=== PATIENT | male | born 1955 | race Caucasian/White ===

== ENCOUNTER 2020-01-26 14:10 | Outpatient (REF) | payer MEDICARE, OTHER, SELFPAY ==
[2020-01-26 16:33] LABS: Hematocrit 43.2 % (42-52); Hemoglobin 14.7 g/dl (14.0-18.0); Mean Corpuscular Hemoglobin 33.3 pg (27.0-33.0); Mean Corpuscular Volume 97.7 fL (80-98); Mean Platelet Volume 10.4 fL (9.4-12.4); Platelet Count 177 X10*3/uL (160-400); Red Blood Count 4.42 X10*6/uL (4.60-5.80); Red Cell Distribution Width 12.1 % (11.0-16.0); White Blood Count 5.9 X10*3/uL (4.8-10.8)
[2020-01-26 16:56] LABS: Anion Gap 12 (12-20); Blood Urea Nitrogen 17 mg/dL (9-16); Calcium 9.1 mg/dL (8.4-10.2); Carbon Dioxide 28 mmol/L (22-29); Chloride 104 mmol/L (96-108); Estimated Glomerular Filt Rate > 60; Glucose Random 102 mg/dL (60-115); Potassium 4.5 mmol/l (3.3-5.1); Sodium 139 mmol/L (135-145)
== END 2020-01-26 14:11 | disposition home or self-care (01) ==
LOC: HO.LAB 14:10
PROVIDERS: Referring Provider Internal Medicine; Visit Provider Internal Medicine Cardiovascular Disease
DX: I35.0 Nonrheumatic aortic (valve) stenosis (principal); R06.00 Dyspnea, unspecified; I10 Essential (primary) hypertension; Z87.891 Personal history of nicotine dependence
CPT/HCPCS: 36415; 80048; 85027; 85610; 99214; 99215

== ENCOUNTER → 2020-05-30 12:05 | Outpatient (BNVA) | payer MEDICARE, OTHER, SELFPAY | PROVIDERS: PCP Nurse Practitioner Family; Visit Provider Internal Medicine Cardiovascular Disease | DX: R00.2 Palpitations (principal); I10 Essential (primary) hypertension; Z95.2 Presence of prosthetic heart valve | CPT/HCPCS: 99212 ==

== ENCOUNTER → 2020-06-13 09:27 | Outpatient (REF) | payer MEDICARE, SELFPAY ==
--- NOTE | 2020-06-13 11:02 | ECG_ITS ---
Hook-up date: 2020-06-13 10:34:00 Duration: 25:13:00 Test Indications: PALPITATIONS Medications: 33741 QRS complexes 58 Ventricular ectopics which represent <1 % of total QRS comp. 319 Supraventricular ectopics which represent <1 % of total QRS comp. * Paced QRS complexs which represent % of total QRS comp. VENTRICULAR ECTOPY 56 Isolated 0 Bigeminal Cycles 1 Couplets 0 Runs 0 Beats in Runs * Beats LONGEST at * BPM at :: -- * Beats FASTEST at * BPM at :: -- SUPRAVENTRICULAR ECTOPY 315 Isolated 2 Couplets 0 Runs 0 Beats in Runs * Beats LONGEST at * BPM at :: -- * Beats FASTEST at * BPM at :: -- HEART RATES 38 MIN at 10:45:18 2020-06-13 52 AVG 76 MAX at 19:00:14 2020-06-13 LONGEST RR 1.9840 secs at 06:09:22 2020-06-14 S-T LEVELS Channel 1 - 128 mm at 10:34:00 2020-06-13 - 128 mm at 10:34:00 2020-06-13 Channel 2 - 128 mm at 10:34:00 2020-06-13 - 128 mm at 10:34:00 2020-06-13 Channel 3 - 128 mm at 02:95:31 -- - 128 mm at 02:95:31 Basic rhythm Normal sinus rhythm No long pause or profound bradycardia Frequent Sinus bradycardia , 93% of time HR < 60 bpm Baseline BBB Occasional Premature atrial complexes No diary submitted Referred By: Maynor Kurtz Overread By: ALBINO MARQUES MD
== END ==
LOC: HO.CARD 09:27
PROVIDERS: PCP Nurse Practitioner Family; Visit Provider Internal Medicine Cardiovascular Disease
DX: R00.2 Palpitations (principal)
CPT/HCPCS: 93226

== ENCOUNTER → 2020-07-04 09:55 | Outpatient (BNVA) | payer MEDICARE, SELFPAY | PROVIDERS: PCP Nurse Practitioner Family; Visit Provider Internal Medicine Cardiovascular Disease | DX: R00.2 Palpitations (principal); I10 Essential (primary) hypertension; Z95.2 Presence of prosthetic heart valve | CPT/HCPCS: 99212 ==

== ENCOUNTER → 2020-08-20 14:16 | Outpatient (BNVA) | payer MEDICARE, SELFPAY | PROVIDERS: PCP Nurse Practitioner Family; Visit Provider Internal Medicine Cardiovascular Disease | DX: I10 Essential (primary) hypertension (principal); Z95.1 Presence of aortocoronary bypass graft; Z95.2 Presence of prosthetic heart valve; Z79.899 Other long term (current) drug therapy; Z87.891 Personal history of nicotine dependence | CPT/HCPCS: 99212 ==

== ENCOUNTER → 2021-03-11 09:57 | Outpatient (BNVA) | payer MEDICARE, SELFPAY | PROVIDERS: PCP Nurse Practitioner Family; Referring Provider Nurse Practitioner Family; Visit Provider Internal Medicine Cardiovascular Disease | DX: Z95.1 Presence of aortocoronary bypass graft (principal); Z95.2 Presence of prosthetic heart valve | CPT/HCPCS: 93005; 99212 ==

== ENCOUNTER → 2021-07-12 13:15 | Outpatient (BNVA) | payer MEDICARE, SELFPAY | PROVIDERS: PCP Nurse Practitioner Family; Referring Provider Nurse Practitioner Family; Visit Provider Nurse Practitioner Family | DX: Z01.810 Encounter for preprocedural cardiovascular examination (principal); I35.0 Nonrheumatic aortic (valve) stenosis; I25.10 Atherosclerotic heart disease of native coronary artery without angina pectoris; Z95.1 Presence of aortocoronary bypass graft; Z95.2 Presence of prosthetic heart valve | CPT/HCPCS: 93005; 99212; Q3014 ==

== ENCOUNTER 2021-07-22 15:39 | Outpatient (REF) | payer MEDICARE, SELFPAY ==
[2021-07-22 19:10] LABS: Influenza A PCR NEGATIVE (Negative); Influenza B PCR NEGATIVE (Negative); Resp Syncy Virus RNA Qual PCR NEGATIVE (Negative); SARS COV2 PCR INHOUSE NEGATIVE (Negative)
== END 2021-07-22 15:40 | disposition home or self-care (01) ==
LOC: HO.LAB 15:39
PROVIDERS: Visit Provider Nurse Practitioner Family
DX: Z01.818 Encounter for other preprocedural examination (principal); Z20.822 Contact with and (suspected) exposure to COVID-19
CPT/HCPCS: 0241U

== ENCOUNTER → 2021-08-27 09:28 | Outpatient (REF) | payer MEDICARE, SELFPAY ==
--- NOTE | 2021-08-27 09:31 | CA_ITS ---
Transthoracic Echocardiogram Patient (Last, First, Middle): Satish Metcalf, Gender: Male Date of : 1955 Age: 66 Procedure Date: 08/27/2021 Procedure Type: Transthoracic Echocardiogram Location: OP Height: 180.34 cm Weight: 100.7 kg BSA: 2.20 m2 Heart Rate: bpm BP: 135 / 72 mmHg Industrial Electrical Engineer: KRISTA Referring MD: Michelle Ortega WOOD BUCKERConstantin Symptoms: Z95.2 - Presence of prosthetic heart valve Study Quality: Fair ECG Rhythm: Sinus Conclusions: - The left ventricular systolic function is normal. The calculated ejection fraction is 63% by biplane method. - The basal inferior and basal inferoseptal segments are hypokinetic. - A bioprosthetic aortic valve is present. The prosthetic aortic valve appears to be functioning normally. Findings Left Ventricle Normal left ventricular cavity size. There is mildly increased left ventricular wall thickness. The left ventricular systolic function is normal. The calculated ejection fraction is 63% by biplane method. There is evidence of regional wall motion abnormalities. Evidence suggests grade I (mild) diastolic dysfunction. Wall Motion Rest Echo Findings The basal inferior and basal inferoseptal segments are hypokinetic. Right Ventricle Normal right ventricular cavity size. There is normal right ventricular systolic function. Atria The left atrium is mildly dilated. The right atrium is normal in size. Aortic Valve A bioprosthetic aortic valve is present. The prosthetic aortic valve appears to be functioning normally. The mean gradient is 15 mmHg. The aortic valve area is 2.03 cm2. There is no aortic valve regurgitation. Mitral Valve There is mild mitral annular calcification. There is no mitral valve regurgitation. There is no mitral valve stenosis. Pulmonic Valve The pulmonic valve is likely normal. Tricuspid Valve Normal tricuspid valve structure. There is trace tricuspid valve regurgitation. The pulmonary artery systolic pressure is normal. Great Vessels The asc aorta is normal in size. Venous The inferior vena cava is normal in size and collapses greater than 50% with inspiration. Pericardium/Pleural There is no evidence of pericardial effusion. Prior Study Comparison Changes noted compared to prior study dated: 07/25/2019. s/p AVR. See comments on wall motion. Measurements 2D Linear Measurements IVSd: 1.27 0.6-0.9/0.6-1.0 cm LVIDd: 4.40 3.9-5.3/4.2-5.9 cm LVIDd Index: 2.00 2.4-3.2/2.2-3.1 cm/m2 LVIDs: 2.31 2.0-3.6 cm LVPWd: 1.19 0.7-1.1 cm LA Diam: 4.20 2.7-3.8/3.0-4.0 cm LAIDs Index: 1.91 1.5-2.3 cm/m2 LV Mass: 247.15 67-162/88-224 g LV Mass Index: 112.34 43-95/49-115 g/m2 LVOT Diam: 2.00 3.0+(-)1.3 cm 2D Systolic Function EF 4C: 64.60 >55% EF 2C: 64.30 >55% EF BiP: 63.10 >55% Mitral Valve MV Pk E: 0.72 MV PK A: 0.91 MV Decel Time: 254.00 E/A: 0.80 E'Lateral: 8.16 E'Medial: 5.55 E/E' Med: 13.00 E/E' Lat: 8.80 PHT: 74.00 MVA PHT: 2.97 Decel Pasco: 2.84 Aortic Valve AoV Pk Reinier: 2.45 AoV Mn Reinier: 1.87 AoV VTI: 0.62 AoV Pk Grad: 24.00 Aov Mn Grad: 15.00 MAY Cont.VTI: 2.03 LVOT LVOT Pk Reinier: 1.67 LVOT Mn Reinier: 1.15 LVOT VTI: 0.40 LVOT Pk Grad: 11.00 LVOT Mn Grad: 6.00 LVOT Diam: 2.00 LVOT Area: 3.14 Diastolic Function MV Pk E: 0.72 MV Pk A: 0.91 E/A: 0.80 E'Medial: 5.55 E/E' Med: 13.00 E' Laterial: 8.16 E/E' Lat: 8.80 Right Ventricle TAPSE (mm): 20.70 TVS' Reinier: 8.27 Tricuspid Valve TR Pk Reinier: 1.78 TR Pk Grad: 13.00 RA Press: 3.00 RVSP: 16.00 Great Vessels Aorta Sinus of Valsalva: 3.43 2.0-3.[address] [place]: 2.61 1.7-3.4 cm Ao Asc: 3.30 2.1-3.4 cm Updated in Other Vendor System with Status of Final Ferny Daniels MD electronically signed on 08/29/2021 5:13:37 PM with status of Final
== END ==
LOC: HO.CARD 09:28
PROVIDERS: Visit Provider Nurse Practitioner Family
DX: Z95.1 Presence of aortocoronary bypass graft (principal); Z95.2 Presence of prosthetic heart valve
CPT/HCPCS: 93306

== ENCOUNTER 2021-11-18 06:05 | Outpatient (REF) | payer MEDICARE, SELFPAY ==
[2021-11-18 08:30] LABS: INTERNATIONAL NORM RATIO 0.9 (0.9-1.1); Prothrombin Time 10.4 SEC (10.0-13.1)
[2021-11-18 08:33] LABS: Partial Thromboplastin Time 28.4 SEC (26.0-36.4)
[2021-11-18 11:11] LABS: MANUAL DIFF FLAG NO
[2021-11-18 11:35] LABS: Appearance Urine CLEAR; Glucose Urine UA NEG (NEG); Leukocyte Esterase Urine NEG (NEG); Nitrite Urine NEG (NEG); Specific Gravity - Urine <= 1.005 (1.005-1.025); Urine Blood NEG (NEG); Urine Ketones NEG (NEG); Urine Protein NEG (NEG-TRACE)
[2021-11-18 11:37] LABS: Color Urine COLORLESS
[2021-11-18 11:52] LABS: Basophils Percent Auto 0.5 % (0-2); Eosinophils Absolute Auto 0.5 X10*3/uL (0.0-0.4); Eosinophils Percent Auto 7.1 % (0-4); Hematocrit 43.8 % (42.0-52.0); Imm Gran Abs Auto 0.01 X10*3/uL (0.00-0.03); Imm Gran Pct Auto 0.2 % (0.0-0.4); Lymphocytes Absolute Auto 2.3 X10*3/uL (1.2-4.9); Lymphocytes Percent Auto 35.7 % (20-40); Mean Corpuscular HGB Conc 34.2 g/dl (31.0-36.0); Mean Corpuscular Volume 99.3 fL (80.0-98.0); Mean Platelet Volume 10.6 fL (9.4-12.4); Monocytes Absolute Auto 0.4 X10*3/uL (0.1-1.2); Monocytes Percent Auto 5.8 % (2-11); Neutrophils Absolute Auto 3.2 x10*3/uL (2.0-8.3); Neutrophils Percent Auto 50.7 % (45-73); Platelet Count 147 X10*3/uL (160-400); Red Blood Count 4.41 X10*6/uL (4.60-5.80); Red Cell Distribution Width 12.7 % (11.0-16.0); White Blood Count 6.3 X10*3/uL (4.8-10.8)
[2021-11-18 12:02] LABS: TSH reflex Free T4 2.45 uIU/mL (0.32-4.0)
[2021-11-18 12:04] LABS: Alanine Aminotransferase 41 U/L (0-40); Albumin Level 4.3 g/dL (3.5-5.0); Alkaline Phosphatase 121 U/L (39-117); Anion Gap 13 (12-20); Aspartate Amino Transferase 33 U/L (5-37); Bilirubin Total 0.8 mg/dL (0.0-1.0); Blood Urea Nitrogen 19 mg/dL (9-16); Calcium 8.9 mg/dL (8.4-10.2); Carbon Dioxide 28 mmol/L (22-29); Chloride 104 mmol/L (96-108); Cholesterol 117 mg/dL; Estimated Glomerular Filt Rate > 60; Glucose Fasting 104 mg/dL (60-99); HDL Cholesterol 51 mg/dL; LDL Cholesterol Calculated 52 mg/dl; Potassium 4.7 mmol/L (3.3-5.1); Sodium 140 mmol/L (135-145); Triglycerides 72 mg/dL
== END 2021-11-18 06:06 | disposition home or self-care (01) ==
LOC: HO.HMGCLDS 06:05
PROVIDERS: PCP Nurse Practitioner Family; Visit Provider Nurse Practitioner Family
DX: Z01.818 Encounter for other preprocedural examination (principal)
CPT/HCPCS: 36415; 80053; 80061; 81003; 84443; 85025; 85610; 85730

== ENCOUNTER → 2022-01-06 13:57 | Outpatient (BNVA) | payer MEDICARE, SELFPAY | PROVIDERS: PCP Nurse Practitioner Family; Referring Provider Nurse Practitioner Family; Visit Provider Physician Assistant | DX: Z86.010 Personal history of colon polyps (principal); I10 Essential (primary) hypertension; Z95.1 Presence of aortocoronary bypass graft | CPT/HCPCS: 99202 ==

== ENCOUNTER → 2022-02-06 10:28 | Outpatient (BNVA) | payer MEDICARE, SELFPAY | PROVIDERS: PCP Nurse Practitioner Family; Referring Provider Nurse Practitioner Family; Visit Provider Internal Medicine Cardiovascular Disease | DX: Z01.810 Encounter for preprocedural cardiovascular examination (principal); I10 Essential (primary) hypertension; Z95.1 Presence of aortocoronary bypass graft | CPT/HCPCS: 93005; 99212 ==

== ENCOUNTER 2022-03-14 07:56 | Outpatient (REF) | payer MEDICARE, SELFPAY ==
[2022-03-14 12:28] LABS: Alanine Aminotransferase 27 U/L (0-40); Alkaline Phosphatase 142 U/L (39-117); Aspartate Amino Transferase 23 U/L (5-37); Bilirubin Direct 0.3 mg/dL (0.0-0.5); Bilirubin Total 0.6 mg/dL (0.0-1.0); Prostate Specific Antigen Scr 0.39 ng/mL (<0.05-4.0); Total Protein 6.7 g/dL (6.5-8.0)
[2022-03-14 12:47] LABS: HBS Num1 0.52 mIU/mL (0-7.99); HBsAGNum1 0.42 S/CO (0.00-0.99); Hepatitis A Antibody IgM 0.15 Index (0-0.79); Hepatitis B Core Antibody Nonreactive (Nonreactive); Hepatitis B Surface Antigen Negative (Negative); ~HepC Num1 0.11 S/CO (0.00-0.79); ~Hepatitis A Antibody IgM Nonreactive (Nonreactive); ~Hepatitis B Surface Antibody NONREACTIVE (Nonreactive); ~Hepatitis C Antibody Nonreactive (Nonreactive)
[2022-03-14 13:07] LABS: Gamma Glutamyl Transpeptidase 30 U/L (11-51)
== END 2022-03-14 07:57 | disposition home or self-care (01) ==
LOC: HO.HMGCLDS 07:56
PROVIDERS: PCP Nurse Practitioner Family; Visit Provider Nurse Practitioner Family
DX: Z12.5 Encounter for screening for malignant neoplasm of prostate (principal); R74.8 Abnormal levels of other serum enzymes
CPT/HCPCS: 36415; 80076; 82977; 84153; 86704; 86706; 86709; 86803; 87340

== ENCOUNTER 2022-04-18 09:43 | Outpatient (REF) | payer MEDICARE, SELFPAY ==
[2022-04-18 11:59] LABS: Gamma Glutamyl Transpeptidase 35 U/L (11-51)
[2022-04-23 08:39] LABS: Alk.Phos Iso. Macrohepatic 0 % (<=0); Alk.Phos Isoenzymes Bone 28 % (28-66); Alk.Phos Isoenzymes Intest 5 % (1-24); Alk.Phos Isoenzymes Liver 67 % (25-69); Alk.Phos Isoenzymes Placental 0 % (<=0); Alk.Phos Isoenzymes Total 113 U/L (35-144)
== END 2022-04-18 09:44 | disposition home or self-care (01) ==
LOC: HO.HMGCLDS 09:43
PROVIDERS: PCP Nurse Practitioner Family; Visit Provider Nurse Practitioner Family
DX: R74.8 Abnormal levels of other serum enzymes (principal)
CPT/HCPCS: 36415; 82977; 84080

== ENCOUNTER 2022-05-05 13:41 | Outpatient (REF) | payer MEDICARE, SELFPAY ==
[2022-05-05 16:38] LABS: MANUAL DIFF FLAG NO
[2022-05-05 16:40] LABS: Basophils Percent Auto 0.2 % (0-2); Eosinophils Absolute Auto 0.4 X10*3/uL (0.0-0.4); Eosinophils Percent Auto 7.1 % (0-4); Hematocrit 43.4 % (42.0-52.0); Hemoglobin 14.8 g/dl (14.0-18.0); Imm Gran Abs Auto 0.01 X10*3/uL (0.00-0.03); Imm Gran Pct Auto 0.2 % (0.0-0.4); Lymphocytes Percent Auto 32.5 % (20-40); Mean Corpuscular HGB Conc 34.1 g/dl (31.0-36.0); Mean Corpuscular Hemoglobin 32.9 pg (27.0-33.0); Mean Corpuscular Volume 96.4 fL (80.0-98.0); Mean Platelet Volume 10.8 fL (9.4-12.4); Monocytes Absolute Auto 0.4 X10*3/uL (0.1-1.2); Monocytes Percent Auto 5.8 % (2-11); Neutrophils Absolute Auto 3.3 x10*3/uL (2.0-8.3); Neutrophils Percent Auto 54.2 % (45-73); Platelet Count 170 X10*3/uL (160-400); White Blood Count 6.1 X10*3/uL (4.8-10.8)
[2022-05-05 18:20] LABS: Alanine Aminotransferase 23 U/L (0-40); Albumin Level 4.1 g/dL (3.5-5.0); Alkaline Phosphatase 128 U/L (39-117); Anion Gap 12 (12-20); Aspartate Amino Transferase 20 U/L (5-37); Bilirubin Total 0.7 mg/dL (0.0-1.0); Blood Urea Nitrogen 15 mg/dL (9-16); Carbon Dioxide 27 mmol/L (22-29); Chloride 105 mmol/L (96-108); Estimated Glomerular Filt Rate > 60; Glucose Random 113 mg/dL (60-115); Potassium 4.4 mmol/L (3.3-5.1); Sodium 140 mmol/L (135-145); Total Protein 6.7 g/dL (6.5-8.0)
[2022-05-05 18:36] LABS: TSH reflex Free T4 2.71 uIU/mL (0.32-4.0)
== END 2022-05-05 13:42 | disposition home or self-care (01) ==
LOC: HO.HMGCLDS 13:41
PROVIDERS: PCP Nurse Practitioner Family; Visit Provider Nurse Practitioner Family
DX: I10 Essential (primary) hypertension (principal)
CPT/HCPCS: 36415; 80053; 84443; 85025

== ENCOUNTER 2022-07-01 06:59 | Day surgery (SDC) | payer MEDICARE, SELFPAY ==
[2022-06-25 10:31] VITALS: BMI 31.4
[2022-06-25 10:50] VITALS: BMI 31.1
--- NOTE | 2022-06-30 11:05 | P.CONAN_ITS ---
Documented by User: Carlee Delacruz NP 06/30/22 11:09 HPI - Anesthesia Eval Consult details Narrative: 67yo M for Colonoscopy Cardiac cleared. OK to hold plavix. Do not interrupt aspirin. s/p CABG x 3 and AVR 04/2020 [facility] Active Problems Active Problems: All Active Problems (Updated 05/05/22 @ 13:41 by Jack Mckenna [facility]) Palpitations (Acute) S/P AVR (Acute) S/P CABG x 3 (Acute) Preop cardiovascular exam (Acute) Atherosclerotic coronary vascular disease (Acute) Pre-op evaluation (Acute) Screening PSA (prostate specific antigen) (Acute) Elevated liver enzymes (Acute) Screening for colon cancer (Acute) Hypertension (Acute) History of colonic polyps (Acute) Preop cardiovascular exam (Acute) Elevated alkaline phosphatase level (Acute) Hypertension (Acute) DEAN (dyspnea on exertion) (Acute) Severe aortic stenosis (Acute) Past Medical History Medical History DEAN (dyspnea on exertion) Hypertension Severe aortic stenosis Family History Family History Father CVD (cardiovascular disease) History of heart attack Mother No problems noted. Surgical History Surgical History History of eye surgery History of left cataract surgery Hx of colonoscopy Hx of detached retina repair S/P CABG x 3 Social History Social History (Updated 06/25/22 @ 10:52 by Lizbet Collado RN) Housing: House Are you a primary home care specialist to a significant other at home: No Do you presently have visiting nurse or other home services: No Alcohol intake: current Alcohol intake frequency: 3 or more drinks per day Alcohol type: beer Patient Tobacco Use Status: Former Tobacco user Quit Date: 1999 Tobacco use type: Cigarette Years Smoked: 20 +/- e-Cigarette/Vaping Use: Never Used Second Hand Smoke Exposure: Yes service: No Current occupational status: retired Cognitive needs: No Hearing needs: No Vision needs: No Meds Allergies Allergy/AdvReac Type Severity Reaction Status Date / Time No Known Allergies Allergy Verified 07/01/22 07:11 Exam Exam Date and Time: June 30, 2022 1105 Height,Weight and Vital Signs: Height 5 ft 11 in Weight 101.151 kg Pertinent Lab Results Pertinent Lab Results: Laboratory Tests 05/05/22 05/05/22 13:51 13:51 WBC 6.1 Hgb 14.8 Hct 43.4 Plt Count 170 Sodium 140 Potassium 4.4 Chloride 105 Carbon Dioxide 27 BUN 15 Creatinine 0.85 Narrative Narrative: EKG 01/2022 Sinus bradycardia 49 beats per minute, right bundle-branch block, QTC 417 milliseconds ECHO 08/2021 Conclusions: - The left ventricular systolic function is normal.? The ? calculated ejection fraction is 63% by biplane method. ? - The basal inferior and basal inferoseptal segments are ? hypokinetic. ? - A bioprosthetic aortic valve is present.? The prosthetic aortic valve appears to be functioning normally.? ?? Assessment and Plan Assessment Anesthesia Assessment: Chart Reviewed Documented by User: La Frederick MD 07/01/22 10:28 [facility] Past Medical History Medical History DEAN (dyspnea on exertion) Hypertension Severe aortic stenosis Family History Family History Father CVD (cardiovascular disease) History of heart attack Mother No problems noted. Family history of problems with anesthesia: No Surgical History Surgical History History of eye surgery History of left cataract surgery Hx of colonoscopy Hx of detached retina repair S/P CABG x 3 History of Problems with Anesthesia: No Social History Social History (Updated 06/25/22 @ 10:52 by Lizbet Collado RN) Housing: House Are you a primary home care specialist to a significant other at home: No Do you presently have visiting nurse or other home services: No Alcohol intake: current Alcohol intake frequency: 3 or more drinks per day Alcohol type: beer Patient Tobacco Use Status: Former Tobacco user Quit Date: 1999 Tobacco use type: Cigarette Years Smoked: 20 +/- e-Cigarette/Vaping Use: Never Used Second Hand Smoke Exposure: Yes service: No Current occupational status: retired Cognitive needs: No Hearing needs: No Vision needs: No Meds Allergies Allergy/AdvReac Type Severity Reaction Status Date / Time No Known Allergies Allergy Verified 07/01/22 07:11 Exam Airway Mallampati Class: II TM Dist: >3cm Neck ROM: Full Denture: Upper and Lower Partial: Upper and Lower Heart: rr Lungs: cta Assessment and Plan Assessment Anesthesia Assessment: Anesthesia Plan Discussed Final Anesthetic Review Family History of Problems with Anesthesia: No History of Problems with Anesthesia: No NPO: Yes ASA Class: III Final Preanesthetic Review: No Changes in Pt Med Stat, Meds/Allgs Chart Reviewed, Consent Obtained/Reviewed and Anes Risks/Benef Reviewed Patient Risk: Intermediate Procedure Risk: Low Anesthetic Plan Anesthetic Plan: MAC: Disposition: Standard PACU
[2022-07-01 07:19] VITALS: BP 122/62; PULSE 56; RESP 16; TEMP 36.6; O2SAT 99
[2022-07-01] MEDS: Lactated Ringers 1,000 ML 100 ML IVCONT (07:31)
--- NOTE | 2022-07-01 08:04 | MHC.SHP ---
Pre-Procedural Eval Section A Date of Service: 07/01/22 Section B Chief Complaint: screening Relevant Family History (Specify if Yes): No Relevant Social History: None Present Medications: see Short Stay Collaborative assessment Medical History: Significant History (DEAN (dyspnea on exertion) Hypertension Severe aortic stenosis) History of Previous Operations: Relevant previous surgery/procedure and date(s) (History of eye surgery History of left cataract surgery Hx of colonoscopy Hx of detached retina repair S/P CABG x 3) Allergies: Allergies Allergy/AdvReac Type Severity Reaction Status Date / Time No Known Allergies Allergy Verified 07/01/22 07:11 Review of Systems Sugical H&P ROS: Negative: Constitution, Cardiovascular, Respiratory, Neurological, Psychiatric, Hem-Onc, Allergic/Immunologic, Gastrointestinal, Genitourinary, Musculoskeletal, Integumentary, Endocrine and Eyes/Ears/Nose/Throat Exam Surgical H&P Exam: Normal: HEENT, Normal: Heart, Normal: Lungs, Normal: Extremities, Normal: Abdomen, Normal: Skin and Normal: Neurological Plan Diagnosis/Plan: Unchanged I have reviewed the history and physical and performed a pertinent physical examination on my patient. No changes have occurred unless specified. Time Spent With Patient Time: Total time managing care of this patient today ____ minutes.
--- NOTE | 2022-07-01 08:12 | W.PM.OPN ---
Operative Note Operative Note Date of Service: 07/01/22 Narrative: Operative Information Procedure Description: Colonoscopy Indication: screening Anesthesia: MAC COLONOSCOPY Instrument: Olympus variable stiffness pediatric scope 190L Colonoscopy Monitoring: Vital signs and clinical assessment, continuous EKG monitoring, Pulse oximetry, Carbon Dioxide monitoring and blood pressure monitoring were done throughout the procedure. Colon withdrawal time was 15 minutes. Procedure: The patient was placed in the left lateral decubitis position and pre-procedure medications were administered. After a digital rectal examination of the ano-rectum, the video colonoscope was inserted into the rectum and advanced through the colon to the cecum/TI. The colonoscope was slowly withdrawn in a retrograde panoramic fashion and the colon mucosa was carefully examined including a retroflexed view of the rectum. Findings and interventions are described below. Procedure Difficulty: easy Findings: Terminal Ileum-normal Cecum: x 2 sessile polyps adjacent to each other measuring 9-10 mm, lifted with eleview and then removed with cold snare. Edges removed with cold forceps Ascending Colon: 4-6 mm sessile polyp removed with cold forceps and 10 mm sessile polyp removed with cold snare Transverse Colon -normal Descending Colon:normal Sigmoid Colon: 6-8 mm sessile polyp removed with cold forceps and 10-12 mm sessile polyp removed with cold snare Rectum: Retroflexion with small internal hemorrhoids, grade I Anorectum - normal Colon preparation: Longford Bowel Preparation Scale Right colon; 2 Transverse colon: 2 Left colon; 2 (0 = Unprepared colon segment with mucosa not seen due to solid stool that cannot be cleared. 1 = Portion of mucosa of the colon segment seen, but other areas of the colon segment not well seen due to staining, residual stool and/or opaque liquid. 2 = Minor amount of residual staining, small fragments of stool and/or opaque liquid, but mucosa of colon segment seen well. 3 = Entire mucosa of colon segment seen well with no residual staining, small fragments of stool or opaque liquid) Impression and Post Procedure Diagnosis: polyps internal hemorrhoids Plan: High fiber diet leaflet Avoid straining at stool, epsom salts and sitz bath, anusol supps or cream Repeat Colonoscopy in 3 years or earlier if clinically indicated Above findings were reviewed with the patient and relevant handouts were provided if indicated.
[2022-07-01 08:53] VITALS: BP 109/58; PULSE 65; RESP 18; TEMP 36.5; O2SAT 98
[2022-07-01 09:08] VITALS: BP 108/57; PULSE 64; RESP 16; O2SAT 97
[2022-07-01 09:22] VITALS: BP 109/58; PULSE 53; RESP 16; TEMP 36.5; O2SAT 99
== END 2022-07-01 09:40 | disposition home or self-care (01) ==
PROVIDERS: PCP Nurse Practitioner Family; Visit Provider Internal Medicine Gastroenterology
PROC: 0DJD8ZZ Inspection of Lower Intestinal Tract, Via Natural or Artificial Opening Endoscopic (ICD-10-PCS; CPT 45378; principal; 2022-07-01 08:10)
DX: Z12.11 Encounter for screening for malignant neoplasm of colon (principal); D12.0 Benign neoplasm of cecum; D12.2 Benign neoplasm of ascending colon; D12.5 Benign neoplasm of sigmoid colon; K64.0 First degree hemorrhoids; I35.0 Nonrheumatic aortic (valve) stenosis; I10 Essential (primary) hypertension; R06.00 Dyspnea, unspecified; Z98.890 Other specified postprocedural states; Z79.82 Long term (current) use of aspirin; Z79.899 Other long term (current) drug therapy; Z87.891 Personal history of nicotine dependence
CPT/HCPCS: 45385; 45380; 88305

== ENCOUNTER → 2022-08-07 13:44 | Outpatient (BNVA) | payer MEDICARE, SELFPAY | PROVIDERS: PCP Nurse Practitioner Family; Referring Provider Nurse Practitioner Family; Visit Provider Nurse Practitioner Family | DX: I25.10 Atherosclerotic heart disease of native coronary artery without angina pectoris (principal); I45.10 Unspecified right bundle-branch block; I10 Essential (primary) hypertension; E78.5 Hyperlipidemia, unspecified; Z95.1 Presence of aortocoronary bypass graft; Z95.2 Presence of prosthetic heart valve | CPT/HCPCS: 99212 ==

== ENCOUNTER → 2022-08-21 14:51 | Outpatient (REF) | payer MEDICARE, SELFPAY ==
--- NOTE | 2022-08-21 14:53 | CA_ITS ---
Transthoracic Echocardiogram Patient (Last, First, Middle): Satish Metcalf, Gender: Male Date of : 1955 Age: 67 Procedure Date: 08/21/2022 Procedure Type: Transthoracic Echocardiogram Location: OP Height: 180.34 cm Weight: 101.15 kg BSA: 2.21 m2 Heart Rate: bpm BP: 132 / 70 mmHg Consultative Sales Associate: TO Referring MD: Michelle Ortega INTERVENTIONAL PAIN PHYSICIAN-Oriana Symptoms: Z95.1 - Presence of aortocoronary bypass graft Study Quality: Fair/Contrast ECG Rhythm: Sinus Conclusions: - The left ventricular systolic function is normal. The visually estimated ejection fraction is between 65-70%. - The basal inferior and basal inferoseptal segments are akinetic. - A bioprosthetic aortic valve is present. The prosthetic aortic valve appears to be functioning normally. Findings Procedure Information Contrast agent, definity, is being given per protocol without apparent complications. Left Ventricle Normal left ventricular cavity size. The left ventricular systolic function is normal. The visually estimated ejection fraction is between 65-70%. There is evidence of regional wall motion abnormalities. Diastolic function is normal for age. There is mild septal asymmetric hypertrophy. Wall Motion Rest Echo Findings The basal inferior and basal inferoseptal segments are akinetic. Right Ventricle Normal right ventricular cavity size. There is mildly decreased right ventricular systolic function. Atria Both atria are normal in size. Aortic Valve A bioprosthetic aortic valve is present. The prosthetic aortic valve appears to be functioning normally. There is no aortic valve stenosis. The mean gradient is 15 mmHg. There is no aortic valve regurgitation. Acceleration time 92ms. Mitral Valve There is mild mitral annular calcification. There is trace mitral valve regurgitation. There is no mitral valve stenosis. Pulmonic Valve The pulmonic valve is likely normal. Tricuspid Valve Normal tricuspid valve structure. There is trace tricuspid valve regurgitation. There is no evidence of pulmonary hypertension. Great Vessels The asc aorta is normal in size. Venous The inferior vena cava is normal in size and collapses greater than 50% with inspiration. Pericardium/Pleural There is no evidence of pericardial effusion. Prior Study Comparison No significant change compared to prior study dated: 08/27/2021. Measurements 2D Linear Measurements IVSd: 1.22 0.6-0.9/0.6-1.0 cm LVIDd: 5.16 3.9-5.3/4.2-5.9 cm LVIDd Index: 2.33 2.4-3.2/2.2-3.1 cm/m2 LVIDs: 3.35 2.0-3.6 cm LVPWd: 0.97 0.7-1.1 cm LA Diam: 4.30 2.7-3.8/3.0-4.0 cm LAIDs Index: 1.95 1.5-2.3 cm/m2 LV Mass: 270.40 67-162/88-224 g LV Mass Index: 122.35 43-95/49-115 g/m2 LVOT Diam: 2.20 3.0+(-)1.3 cm 2D Systolic Function EF 4C: 76.00 >55% EF 2C: 73.10 >55% EF BiP: 74.20 >55% Mitral Valve MV VTI: 0.33 MV Pk Reinier: 0.99 MV Mn Reinier: 0.63 MV Pk Grad: 4.00 MV Mn Grad: 2.00 E'Lateral: 7.62 E'Medial: 6.53 MVA Continuity: 2.83 Aortic Valve AoV Pk Reinier: 2.58 AoV Mn Reinier: 1.82 AoV VTI: 0.58 AoV Pk Grad: 27.00 Aov Mn Grad: 15.00 MAY Cont.VTI: 1.58 LVOT LVOT Pk Reinier: 1.08 LVOT Mn Reinier: 0.75 LVOT VTI: 0.24 LVOT Pk Grad: 5.00 LVOT Mn Grad: 3.00 LVOT Diam: 2.20 LVOT Area: 3.80 Diastolic Function E'Medial: 6.53 E' Laterial: 7.62 Right Ventricle TAPSE (mm): 16.10 TVS' Reinier: 9.25 Tricuspid Valve TR Pk Reinier: 1.41 TR Pk Grad: 8.00 RA Press: 3.00 RVSP: 11.00 Great Vessels Aorta Ao Asc: 3.30 2.1-3.4 cm Updated in Other Vendor System with Status of Final Ferny Daniels MD electronically signed on 08/22/2022 3:04:29 PM with status of Final
== END ==
LOC: HO.CARD 14:51
PROVIDERS: PCP Nurse Practitioner Family; Visit Provider Nurse Practitioner Family
DX: Z95.1 Presence of aortocoronary bypass graft (principal); Z95.2 Presence of prosthetic heart valve
CPT/HCPCS: 93306; Q9957

== ENCOUNTER 2022-11-13 09:40 | Outpatient (AMB) | payer MEDICARE, SELFPAY ==
[2022-11-13 10:24] VITALS: BP 138/70; PULSE 57; O2SAT 98; BMI 31.8
--- NOTE | 2022-11-13 10:24 | A.OFFPC_ITS ---
Vital Signs 11/13/22 10:24 Height 5 ft 11 in Weight 228 lb 2 oz BMI 31.8 BP 138/70 Blood Pressure Location Rt brachial Position Sitting Pulse 57 Pulse Source Pulse Oximeter Pulse Oximetry (%) 98 Oxygen Delivery Method Room Air Intake Visit Reasons: Annual Physical Allergies No Known Allergies Allergy (Verified 08/07/22 14:04) Medication List - Last Reconciled 11/13/22 by VENUS Herbert amlodipine 10 mg PO DAILY aspirin 81 mg PO DAILY atorvastatin 80 mg PO DAILY 90 days lisinopril 10 mg PO DAILY metoprolol tartrate 50 mg PO BID Tobacco use date assessed: 05/05/22 HPI Annual Physical HPI Details Pt is here for a PE. Will order labs. Colon screen is up to date. PSA is up to date. Pt follows up with cardiology. Cerumen noted to left ear, ear lavage did not work. Encouraged pt to use debrox at home. [facility] Medical History DEAN (dyspnea on exertion) Hypertension Severe aortic stenosis Surgical History History of eye surgery History of left cataract surgery Hx of colonoscopy Hx of detached retina repair S/P CABG x 3 Family History Father CVD (cardiovascular disease) History of heart attack Mother No problems noted. Social History Housing: House Are you a primary client care specialist to a significant other at home: No Do you presently have visiting nurse or other home services: No Alcohol intake: current Alcohol intake frequency: 3 or more drinks per day Alcohol type: beer Patient Tobacco Use Status: Former Tobacco user Quit Date: 1999 Tobacco use type: Cigarette Years Smoked: 20 +/- e-Cigarette/Vaping Use: Never Used Second Hand Smoke Exposure: Yes Substance Use Type: Marijuana service: No Current occupational status: retired Cognitive needs: No Hearing needs: No Vision needs: No Questionnaire Thrive Questionnaire Date Thrive assessed: 05/05/22 JOSS-7 AMB Questionnaire JOSS-7 Date JOSS - 7 assessed: 05/05/22 Source: Developed by Drs. Candido Rojas, Aura Woodward, Anthony Gary and colleagues, with an educational michelle from [employer]. Review of Systems Const Denies chills and Denies fever(s) Eyes Denies blurry vision ENT Denies vertigo, Denies dizziness and Denies sore throat Card Denies chest pain at rest, Denies chest pain with activity, Denies diaphoresis, Denies dyspnea and Denies dyspnea on exertion Resp Denies cough, Denies dyspnea, Denies dyspnea on exertion and Denies wheezing GI Denies abdominal pain, Denies melena, Denies hematochezia, Denies constipation, Denies diarrhea and Denies loose stools Denies hematuria Musc Denies numbness and Denies tingling Skin/Breast Denies lesions Neuro Denies vertigo, Denies dizziness, Denies numbness and Denies tingling Psych Denies anxiety, Denies depression, Denies homicidal ideation, Denies suicidal ideation and Denies other (substance abuse) Aller/Immun Denies wheezing Physical exam (Primary Care) Vital Signs: Last Vital Signs Pulse 57 11/13/22 10:24 BP 138/70 11/13/22 10:24 Pulse Ox 98 11/13/22 10:24 Oxygen Delivery Method Room Air 11/13/22 10:24 BMI result Body Mass Index 31.8 Tobacco/Smoking Status: Tobacco use Status Tobacco use date assessed 05/05/22 11/13/22 10:25 Patient Tobacco Use Status Former Tobacco user 11/13/22 10:25 Tobacco use type Cigarette 11/13/22 10:25 e-Cigarette/Vaping Use Never Used 11/13/22 10:25 Thrive Assessment: Date of Thrive Assessment Date Thrive assessed 05/05/22 11/13/22 10:25 Const General: cooperative Nutritional Appearance: obese Orientation/consciousness: patient oriented x3 HENMT Other: cerumen noted to left ear, after ear lavage cerumen still present Head: Yes normal to inspection, Yes normocephalic and Yes atraumatic Ears: TM normal on the right Eyes General: appearance normal, both eyes and all related structures Alignment and Position: alignment normal and position normal Neck Neck: Yes normal visual inspection and Yes no lymphadenopathy Thyroid: Thyroid normal Resp Effort & Inspection: normal respiratory effort Auscultation: clear to auscultation bilaterally Cardio Rate: regular rate Rhythm: regular rhythm Heart sounds: S1 normal heart sound present, S2 normal heart sound present and Murmur heart sound present systolic GI Palpation (GI): Soft to palpation and nontender Auscultation: normal bowel sounds Male General Exam: Yes normal external exam Penis: normal penis Scrotum: scrotum normal, testes descended bilaterally and no inguinal hernias Testes: no testicular mass Skin Rashes: no rashes Neuro General: patient oriented x3, moves all extremities, no focal motor deficits and deep tendon reflexes 2+ bilaterally Romberg Test: Negative Extrem Right lower extremity: edema Details: pitting and 1+ Left lower extremity: edema Details: pitting and 1+ Psych Appearance: grossly normal Mental Status: mental status grossly normal Speech and movement: Normal speech and movement present Affect: normal affect Attitude: cooperative Thought process: Normal thought process present Thought content: Normal thought content present Insight: Good insight present (Psych) Judgement: Good judgement present (Psych) Office Procedures Cerumen Removal From which ear canal was the cerumen removed: left Removal: irrigation Notes: patient tolerated procedure well and no complications [id number] Irrigation/Lavage (ear cerumen unable to remove) Assessment and Plan Assessment & Plan (1) Physical exam: Code(s): Z00.00 - Encounter for general adult medical examination without abnormal findings Plan: Labs ordered (2) Screening PSA (prostate specific antigen): Code(s): Z12.5 - Encounter for screening for malignant neoplasm of prostate (3) Excessive cerumen in left ear canal: Code(s): H61.22 - Impacted cerumen, left ear Plan The patient agreed to the use of a medical lab scientist for this encounter. Scribed for VENUS Muse by Xochilt Kc medical lab scientist, on 11/13/2022 at 10:25 EST. Orders: Orders Comprehensive Tyr[place]. Panel Fast Today Z00.00 - Encounter for general adult medical examination without abnormal findings Lipid Panel Today Z00.00 - Encounter for general adult medical examination without abnormal findings TSH reflex Free T4 Today Z00.00 - Encounter for general adult medical examination without abnormal findings Complete Blood Count Auto Diff Today Z00.00 - Encounter for general adult medical examination without abnormal findings UA CC w/rflx Micro + Cult Today Z00.00 - Encounter for general adult medical examination without abnormal findings Prostate Specific Antigen Scr Today Z12.5 - Encounter for screening for malignant neoplasm of prostate Coding Level of Care Code Est Pt Prev Care >65y(69242) Diagnoses Physical exam Z00.00 Screening PSA (prostate specific antigen) Z12.5 Excessive cerumen in left ear canal H61.22 CPT Codes Office Procedure - CPT: 77580-Ucw Irrigation/Lavage ([id number])
== END 2022-11-13 12:07 | disposition home or self-care (01) ==
PROVIDERS: Visit Provider Nurse Practitioner Family
DX: Z00.00 Encounter for general adult medical examination without abnormal findings (principal); H61.22 Impacted cerumen, left ear
CPT/HCPCS: 69209; 99397

== ENCOUNTER 2023-01-24 09:51 | Outpatient (REF) | payer MEDICARE, SELFPAY ==
[2023-01-24 11:17] LABS: Appearance Urine Clear; Color Urine Yellow; Glucose Urine UA Negative (Negative); Leukocyte Esterase Urine Negative (Negative); Nitrite Urine Negative (Negative); Urine Blood Negative (Negative); Urine Ketones Negative (Negative); Urine Protein Negative (Neg-Trace)
[2023-01-24 11:19] LABS: MANUAL DIFF FLAG NO
[2023-01-24 11:21] LABS: Basophils Percent Auto 0.3 % (0-2); Eosinophils Absolute Auto 0.4 X10*3/uL (0.0-0.4); Eosinophils Percent Auto 6.3 % (0-4); Hematocrit 43.8 % (42.0-52.0); Hemoglobin 15.3 g/dl (14.0-18.0); Imm Gran Abs Auto 0.02 X10*3/uL (0.00-0.03); Imm Gran Pct Auto 0.3 % (0.0-0.4); Lymphocytes Absolute Auto 2.5 X10*3/uL (1.2-4.9); Lymphocytes Percent Auto 42.1 % (20-40); Mean Corpuscular HGB Conc 34.9 g/dl (31.0-36.0); Mean Corpuscular Hemoglobin 34.2 pg (27.0-33.0); Mean Platelet Volume 10.9 fL (9.4-12.4); Monocytes Absolute Auto 0.3 X10*3/uL (0.1-1.2); Monocytes Percent Auto 5.2 % (2-11); Neutrophils Absolute Auto 2.7 x10*3/uL (2.0-8.3); Neutrophils Percent Auto 45.8 % (45-73); Platelet Count 170 X10*3/uL (160-400); Red Blood Count 4.47 X10*6/uL (4.60-5.80); Red Cell Distribution Width 12.3 % (11.0-16.0); White Blood Count 5.9 X10*3/uL (4.8-10.8)
[2023-01-24 11:52] LABS: Alanine Aminotransferase 23 U/L (0-40); Albumin Level 4.1 g/dL (3.5-5.0); Alkaline Phosphatase 129 U/L (39-117); Anion Gap 13 (12-20); Aspartate Amino Transferase 23 U/L (5-37); Bilirubin Total 0.8 mg/dL (0.0-1.0); Blood Urea Nitrogen 15 mg/dL (9-16); Calcium 9.4 mg/dL (8.4-10.2); Carbon Dioxide 26 mmol/L (22-29); Chloride 106 mmol/L (96-108); Cholesterol 108 mg/dL (<200); Estimated Glomerular Filt Rate > 60; Glucose Fasting 107 mg/dL (60-99); HDL Cholesterol 55 mg/dL (>40); LDL Cholesterol Calculated 43 mg/dL (<100); Potassium 4.5 mmol/L (3.3-5.1); Sodium 140 mmol/L (135-145); Total Protein 7.3 g/dL (6.5-8.0); Triglycerides 51 mg/dL (<150)
[2023-01-24 11:58] LABS: TSH reflex Free T4 1.54 uIU/mL (0.32-4.0)
[2023-01-24 12:05] LABS: Prostate Specific Antigen Scr 0.31 ng/mL (<0.05-4.0)
== END 2023-01-24 09:52 | disposition home or self-care (01) ==
LOC: HO.HMGCLDS 09:51
PROVIDERS: PCP Nurse Practitioner Family; Visit Provider Nurse Practitioner Family
DX: Z00.00 Encounter for general adult medical examination without abnormal findings (principal); Z12.5 Encounter for screening for malignant neoplasm of prostate; I10 Essential (primary) hypertension; E78.5 Hyperlipidemia, unspecified
CPT/HCPCS: 36415; 80053; 80061; 81003; 84153; 84443; 85025

== ENCOUNTER 2023-02-04 14:57 | Outpatient (AMB) | payer MEDICARE, SELFPAY ==
--- NOTE | 2023-02-04 15:04 | A.OFFVIS_ITS ---
Intake Vital Signs 02/04/23 15:05 Height 5 ft 11 in Weight 224 lb 6.889 oz BMI 31.3 BP 120/70 Blood Pressure Location Lt brachial Position Sitting Pulse 63 Intake Visit Reasons: 6 mth f/up per DC Orthodontic Laboratory Technician Required: No Accompanied by: Self / Same As Patient Allergies No Known Allergies Allergy (Verified 02/04/23 15:06) Medication List - Last Reconciled 02/04/23 by Maynor Kurtz MD amlodipine 10 mg PO DAILY aspirin 81 mg PO DAILY atorvastatin 80 mg PO DAILY 90 days lisinopril 10 mg PO DAILY metoprolol tartrate 50 mg PO BID HPI HPI Comments History of Present Illness Details Pleasant 67 year gentleman here for follow-up. He is status post bypass surgery and aortic valve replacement with a bioprosthetic valve. He is doing well. Physically active and has no exertional symptoms. He has chronic right bundle-branch block. 02/04/2023: He returns for follow-up. H e has been doing fine. No chest discomfort or shortness of breath. Blood pressure is well controlled. EKG has right bundle-branch block as before. No exertional concerns. ECHO reviewed showing normal LVEF with basal inferior wall motion abnormality. Bioprosthetic valve was functioning fine. [facility] Medical History DEAN (dyspnea on exertion) Hypertension Severe aortic stenosis Surgical History History of eye surgery History of left cataract surgery Hx of colonoscopy Hx of detached retina repair S/P CABG x 3 Family History Father CVD (cardiovascular disease) History of heart attack Mother No problems noted. Social History Housing: House Are you a primary managed care provider to a significant other at home: No Do you presently have visiting nurse or other home services: No Alcohol intake: current Alcohol intake frequency: 3 or more drinks per day Alcohol type: beer Patient Tobacco Use Status: Former Tobacco user Quit Date: 1999 Tobacco use type: Cigarette Years Smoked: 20 +/- e-Cigarette/Vaping Use: Never Used Second Hand Smoke Exposure: Yes Substance Use Type: Marijuana service: No Current occupational status: retired Cognitive needs: No Hearing needs: No Vision needs: No Physical Exam Vital Signs: Last Vital Signs Pulse 63 02/04/23 15:05 BP 120/70 02/04/23 15:05 BMI result Body Mass Index 31.3 GENERAL APPEARANCE: in no acute distress, pleasant. NECK/THYROID: no carotid bruit, no jugular venous distention. SKIN: Midline sternotomy scar. HEART: no murmurs, regular rate and rhythm. LUNGS: clear to auscultation bilaterally. ABDOMEN: soft, nontender. EXTREMITIES: no edema. PERIPHERAL PULSES: Left radial artery has been harvested for bypass. Otherwise equal pulses. NEUROLOGIC: No gross deficits, AAO X 3 Office Procedures EKG Details: Sinus rhythm 63 beats per minute, rightward axis, right bundle-branch block, QTC 468 milliseconds. [id number], Complete Assessment & Plan Assessment & Plan (1) S/P CABG x 3: Comment: GUIDRY to LAD, left radial graft to the diagonal branch of the LAD, right GSV to the PDA, 05/02/2020 Code(s): Z95.1 - Presence of aortocoronary bypass graft (2) S/P AVR: Comment: 25 mm pericardial bioprosthesis 05/02/2020 Code(s): Z95.2 - Presence of prosthetic heart valve Plan Pleasant 67 gentleman is here for follow-up. He is status post aortic valve replacement as well as coronary artery bypass surgery with GUIDRY to LAD, left radial graft to diagonal and saphenous vein graft to the right coronary artery. He has been doing well since bypass surgery and valve replacement. Echocardiography is showing normal valve gradients. Blood pressure control is good. He will see us back in 1 year. Thank you for allowing me to participate in the care of your patient. Please feel free to contact me if you have any questions. Coding Level of Care Code Est Pt Level 3 (42973) Diagnoses S/P CABG x 3 Z95.1 S/P AVR Z95.2 CPT Codes EKG - CPT: [id number], Complete ([id number])
[2023-02-04 15:05] VITALS: BP 120/70; PULSE 63; BMI 31.3
== END 2023-02-04 15:18 | disposition home or self-care (01) ==
PROVIDERS: PCP Nurse Practitioner Family; Visit Provider Internal Medicine Cardiovascular Disease
DX: Z95.1 Presence of aortocoronary bypass graft (principal); Z95.2 Presence of prosthetic heart valve
CPT/HCPCS: 93010; 99213

== ENCOUNTER → 2023-02-04 14:57 | Outpatient (BNVA) | payer MEDICARE, SELFPAY | PROVIDERS: PCP Nurse Practitioner Family; Visit Provider Internal Medicine Cardiovascular Disease | DX: Z95.1 Presence of aortocoronary bypass graft (principal); Z95.2 Presence of prosthetic heart valve | CPT/HCPCS: 93005; 99212 ==

== ENCOUNTER 2023-05-18 09:13 | Outpatient (AMB) | payer MEDICARE, SELFPAY ==
[2023-05-18 09:22] VITALS: BP 130/72; PULSE 54; O2SAT 100; BMI 31.8
--- NOTE | 2023-05-18 09:22 | A.OFFPC_ITS ---
Vital Signs 05/18/23 09:22 Height 5 ft 11 in Weight 228 lb 6 oz BMI 31.8 BP 130/72 Blood Pressure Location Lt brachial Position Sitting Pulse 54 Pulse Source Pulse Oximeter Pulse Oximetry (%) 100 Oxygen Delivery Method Room Air Intake Visit Reasons: 6m Intake Note: Pt is here to follow up for HTN Allergies No Known Allergies Allergy (Verified 05/18/23 09:24) Medication List - Last Reconciled 05/18/23 by VENUS Herbert amlodipine 10 mg PO DAILY aspirin 81 mg PO DAILY atorvastatin 80 mg PO DAILY 90 days lisinopril 10 mg PO DAILY metoprolol tartrate 50 mg PO BID Tobacco use date assessed: 05/18/23 Fall risk assessment: No Falls in past year Last assessed Fall Risk: 05/18/23 Dental Screening Dental Screen Date: 05/18/23 Did you have a dental visit in the last 12 months?: No Did you have a dental problem in the last 6 months where you did not have access to dental care?: No Was dental information given to patient?: No HPI 6m HPI Details Dyslipidemia: On atorvastatin 80mg. Will order labs. Hx of CAD, he is following up with cardiology, is on asa. Pt has undergone a CABG x3 in the past. Denies chest pain, shortness of breath, headache, dizziness, and blurred vision. [facility] Medical History DEAN (dyspnea on exertion) Hypertension Severe aortic stenosis Surgical History History of eye surgery History of left cataract surgery Hx of colonoscopy Hx of detached retina repair S/P CABG x 3 Family History Father CVD (cardiovascular disease) History of heart attack Mother No problems noted. Social History Housing: House Are you a primary cardiac care nurse to a significant other at home: No Do you presently have visiting nurse or other home services: No Alcohol intake: current Alcohol intake frequency: 3 or more drinks per day Alcohol type: beer Patient Tobacco Use Status: Former Tobacco user Quit Date: 1999 Tobacco use type: Cigarette Years Smoked: 20 +/- e-Cigarette/Vaping Use: Never Used Second Hand Smoke Exposure: Yes Substance Use Type: Marijuana service: No Current occupational status: retired Cognitive needs: No Hearing needs: No Vision needs: No Questionnaire PHQ-9 Over the last 2 weeks, how often have you been bothered by any of the following problems? 1. Little interest or pleasure in doing things: not at all 2. Feeling down, depressed, or hopeless: not at all 3. Trouble falling or staying asleep, or sleeping too much: not at all 4. Feeling tired or having little energy: not at all 5. Poor appetite or overeating: not at all 6. Feeling bad about yourself - or that you are a failure or have let yourself or your family down: not at all 7. Trouble concentrating on things, such as reading the newspaper or watching television: not at all 8. Moving or speaking so slowly that other people could have noticed. Or the opposite - being so fidgety or restless that you have been moving around a lot more than usual: not at all 9. Thoughts that you would be better off or of hurting yourself in some way: not at all Total score: 0 Source: Developed by Drs. Candido Rojas, Aura Woodward, Anthony Gary and colleagues, with an educational michelle from [employer]. Thrive Questionnaire Date Thrive assessed: 05/18/23 I am a: Patient What is your living situation today?: I have a steady place to live Within the past 12 months, did the food you bought not last and you didn't have the money to get more?: Never true Within the past 12 months, did you worry whether your food would run out before you got money to buy more?: Never true Do you have trouble paying for medicines?: No Do you have trouble getting transportation to medical appointments?: No Do you have trouble paying your heating and electricity bill?: No Do you have trouble taking care of your child, family member or friend?: No Do you have trouble with day-to-day activities such as bathing, preparing meals, shopping, managing finances, etc.?: No Are you currently unemployed and looking for a job?: No Are you interested in more education?: No Currently or been in a relationship where the following occur: no concerns reported THRIVE Score: 0 AUDIT C Alcohol Use Questionnaire (AUDIT-C) 1. How often do you have a drink containing alcohol?: 4 or more times a week 2. How many drinks containing alcohol do you have on a typical day when you are drinking?: 5 or 6 3. How often do you have six or more drinks on one occasion?: Daily or almost daily Total Score: 10 JOSS-7 AMB Questionnaire JOSS-7 Date JOSS - 7 assessed: 05/18/23 Feeling nervous, anxious, or on edge: 0 = Not at all Not being able to stop or control worryin = Not at all Worrying too much about different things: 0 = Not at all Trouble relaxin = Not at all Being so restless that it is hard to sit still: 0 = Not at all Becoming easily annoyed or irritable: 0 = Not at all Feeling afraid as if something awful might happen: 0 = Not at all Total JOSS-7 score (0-4 normal; 5-9 mild; 10-14 moderate; 15-21 severe): 0 Source: Developed by Drs. Candido Rojas, Aura Woodward, Anthony Gary and colleagues, with an educational michelle from [employer]. Review of Systems Const Reports as per HPI Physical exam (Primary Care) Vital Signs: Last Vital Signs Pulse 54 05/18/23 09:22 BP 130/72 05/18/23 09:22 Pulse Ox 100 05/18/23 09:22 Oxygen Delivery Method Room Air 05/18/23 09:22 BMI result Body Mass Index 31.8 Tobacco/Smoking Status: Tobacco use Status Tobacco use date assessed 05/18/23 05/18/23 09:27 Patient Tobacco Use Status Former Tobacco user 05/18/23 09:27 Tobacco use type Cigarette 05/18/23 09:27 e-Cigarette/Vaping Use Never Used 05/18/23 09:27 Thrive Assessment: Date of Thrive Assessment Date Thrive assessed 05/05/22 05/18/23 09:27 Currently or been in a relationship where the following occur: no concerns reported Const General: cooperative Nutritional Appearance: obese Orientation/consciousness: patient oriented x3 Resp Effort & Inspection: normal respiratory effort Auscultation: clear to auscultation bilaterally Cardio Rate: regular rate Rhythm: regular rhythm Heart sounds: S1 normal heart sound present and S2 normal heart sound present Neuro General: patient oriented x3 Extrem Right lower extremity: edema Details: pitting and 1+ Left lower extremity: edema Details: pitting and 1+ Psych Appearance: grossly normal Mental Status: mental status grossly normal Speech and movement: Normal speech and movement present Affect: normal affect Attitude: cooperative Thought process: Normal thought process present Thought content: Normal thought content present Insight: Good insight present (Psych) Judgement: Good judgement present (Psych) Assessment and Plan Assessment & Plan (1) Hyperlipidemia: Code(s): E78.5 - Hyperlipidemia, unspecified Plan: Labs ordered, on statin (2) CAD (coronary artery disease): Code(s): I25.10 - Atherosclerotic heart disease of [place] coronary artery without angina pectoris Plan: Labs ordered Plan The patient agreed to the use of a medical tech for this encounter. Scribed for VENUS Muse by [employer] medical tech, on 05/18/2023 at 09:40 EST. Orders: Orders TSH reflex Free T4 Today E78.5 - Hyperlipidemia, unspecified, I25.10 - Atherosclerotic heart disease of [place] coronary artery without angina pectoris UA CC w/rflx Micro + Cult Today E78.5 - Hyperlipidemia, unspecified, I25.10 - Atherosclerotic heart disease of [place] coronary artery without angina pectoris Complete Blood Count Auto Diff Today E78.5 - Hyperlipidemia, unspecified, I25.10 - Atherosclerotic heart disease of [place] coronary artery without angina pector is Comprehensive [place]. Panel Fast Today E78.5 - Hyperlipidemia, unspecified, I25.10 - Atherosclerotic heart disease of [place] coronary artery without angina pectoris Lipid Panel Today E78.5 - Hyperlipidemia, unspecified, I25.10 - Atherosclerotic heart disease of [place] coronary artery without angina pectoris Coding Level of Care Code Est Pt Level 3 (40593) Diagnoses Hyperlipidemia E78.5 CAD (coronary artery disease) I25.10
== END 2023-05-18 10:18 | disposition home or self-care (01) ==
PROVIDERS: PCP Nurse Practitioner Family; Visit Provider Nurse Practitioner Family
DX: E78.5 Hyperlipidemia, unspecified (principal); I25.10 Atherosclerotic heart disease of native coronary artery without angina pectoris
CPT/HCPCS: 99213

== ENCOUNTER 2023-05-28 08:03 | Emergency (ER) | payer OTHER, MEDICARE, SELFPAY ==
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
[2023-05-28 08:09] VITALS: BP 149/68; BP 190/96; PULSE 70; PULSE 72; RESP 18; TEMP 36.6; O2SAT 97; BMI 32.1
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
[2023-05-28 08:47] LABS: MANUAL DIFF FLAG NO
[2023-05-28 09:00] LABS: Anion Gap 11 (12-20); Blood Urea Nitrogen 14 mg/dL (9-16); Calcium 8.8 mg/dL (8.4-10.2); Carbon Dioxide 25 mmol/L (22-29); Chloride 106 mmol/L (96-108); Creatinine Clr Calc Pharmacy 98.2; Estimated Glomerular Filt Rate > 60; Glucose Random 108 mg/dL (60-115); Potassium 4.2 mmol/L (3.3-5.1); Sodium 138 mmol/L (135-145)
[2023-05-28 09:07] LABS: Basophils Percent Auto 0.4 % (0-2); Eosinophils Absolute Auto 0.3 X10*3/uL (0.0-0.4); Hematocrit 40.2 % (42.0-52.0); Hemoglobin 14.4 g/dl (14.0-18.0); Imm Gran Abs Auto 0.01 X10*3/uL (0.00-0.03); Imm Gran Pct Auto 0.2 % (0.0-0.4); Lymphocytes Absolute Auto 1.6 X10*3/uL (1.2-4.9); Mean Corpuscular HGB Conc 35.8 g/dl (31.0-36.0); Mean Corpuscular Hemoglobin 33.6 pg (27.0-33.0); Mean Corpuscular Volume 93.9 fL (80.0-98.0); Mean Platelet Volume 10.2 fL (9.4-12.4); Monocytes Absolute Auto 0.2 X10*3/uL (0.1-1.2); Monocytes Percent Auto 4.4 % (2-11); Neutrophils Absolute Auto 2.4 x10*3/uL (2.0-8.3); Platelet Count 126 X10*3/uL (160-400); Red Blood Count 4.28 X10*6/uL (4.60-5.80); Red Cell Distribution Width 12.1 % (11.0-16.0); White Blood Count 4.5 X10*3/uL (4.8-10.8)
[2023-05-28 09:09] LABS: Troponin-I High Sensitivity < 2.7 ng/L (<3.5-35.0)
[2023-05-28] MEDS: Ibuprofen 600 MG TABLET PO (10:13)
[2023-05-28 10:15] VITALS: BP 155/70; PULSE 64; RESP 16; TEMP 36.6; O2SAT 96
== END 2023-05-28 10:36 | disposition home or self-care (01) ==
PROVIDERS: Emergency Provider Emergency Medicine; PCP Nurse Practitioner Family
DX: S09.90XA Unspecified injury of head, initial encounter (principal); V43.52XA Car driver injured in collision with other type car in traffic accident, initial encounter; Z95.1 Presence of aortocoronary bypass graft; Y93.89 Activity, other specified; Y92.488 Other paved roadways as the place of occurrence of the external cause; Y99.9 Unspecified external cause status
CPT/HCPCS: 36415; 70450; 71045; 72125; 80048; 84484; 85025; 93005; 99284; 99285

== ENCOUNTER → 2023-05-28 08:21 | Outpatient (BNV) | payer MEDICARE, SELFPAY | PROVIDERS: Emergency Provider Emergency Medicine; PCP Nurse Practitioner Family; Visit Provider Internal Medicine Cardiovascular Disease | DX: R94.31 Abnormal electrocardiogram [ECG] [EKG] (principal) | CPT/HCPCS: 93010 ==

== ENCOUNTER 2023-06-10 15:30 | Outpatient (AMB) | payer OTHER, MEDICARE, SELFPAY ==
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
[2023-06-10 15:45] VITALS: BP 150/78; PULSE 58; O2SAT 98; BMI 32.1
== END 2023-06-10 16:43 | disposition home or self-care (01) ==
PROVIDERS: PCP Nurse Practitioner Family; Visit Provider Nurse Practitioner Family
DX: S00.83XA Contusion of other part of head, initial encounter (principal); M54.2 Cervicalgia; V89.2XXA Person injured in unspecified motor-vehicle accident, traffic, initial encounter; I10 Essential (primary) hypertension
CPT/HCPCS: 99213

== ENCOUNTER 2023-07-30 08:45 | Outpatient (AMB) | payer MEDICARE, SELFPAY ==
[2023-07-30 09:56] VITALS: BP 150/90; PULSE 87; TEMP 36.6; O2SAT 97; BMI 31.8
--- NOTE | 2023-07-30 09:56 | MHC.OFFWIV ---
Intake Vital Signs 07/30/23 09:56 Height 5 ft 11 in Weight 228 lb BMI 31.8 BP 150/90 H Blood Pressure Location Lt brachial Position Sitting Pulse 87 Pulse Source Pulse Oximeter Temp 97.8 F Temp Source Temporal Artery Scan Pulse Oximetry (%) 97 Oxygen Delivery Method Room Air Intake Visit Reasons: EP Lower back pain due to fall in shower Intake Note: pt is here today for lower back pain fell in the shower thursday Patient Tobacco Use Status: Former Tobacco user Quit Date: 1999 Allergies No Known Allergies Allergy (Verified 07/30/23 10:00) Do you need a note to return to daycare/school/sports/work: No HPI EP Lower back pain due to fall in shower HPI Details This is a 68-year-old male patient who presents today with right-sided posterior rib pain s/p fall in the shower 2 days ago. He states he slipped on his shower mat and hit the right side of his ribs on the edge of his tub. He had been using Ibuprofen with some moderate relief, however was reminded by his he cannot take that as he is on asa for cardiac history. He has pain with all movement and deep breaths. No SOB. PFSH Medical History Hypertension DEAN (dyspnea on exertion) Severe aortic stenosis Surgical History Hx of detached retina repair Hx of colonoscopy History of eye surgery S/P CABG x 3 History of left cataract surgery Family History Father CVD (cardiovascular disease) History of heart attack Mother No problems noted. Social History Housing: House Are you a primary behavioral health care coordinator to a significant other at home: No Do you presently have visiting nurse or other home services: No Alcohol intake: current Alcohol intake frequency: 3 or more drinks per day Alcohol type: beer Patient Tobacco Use Status: Former Tobacco user Quit Date: 1999 Tobacco use type: Cigarette Years Smoked: 20 +/- e-Cigarette/Vaping Use: Never Used Second Hand Smoke Exposure: Yes Substance Use Type: Marijuana service: No Current occupational status: retired Cognitive needs: No Hearing needs: No Vision needs: No Review of Systems Const All systems reviewed & are unremarkable except as noted in HPI and below Physical Exam Vital Signs: Last Vital Signs Temp 97.8 F 07/30/23 09:56 Pulse 87 07/30/23 09:56 BP 150/90 H 07/30/23 09:56 Pulse Ox 97 07/30/23 09:56 Oxygen Delivery Method Room Air 07/30/23 09:56 BMI result Body Mass Index 31.8 Const General: cooperative HEENT Head: Yes normal to inspection Resp Effort & Inspection: normal respiratory effort (right rib pain with deep inspiration) Auscultation: clear to auscultation bilaterally Cardio Rate: regular rate Rhythm: regular rhythm Back/Spine/Pelvis Other: No vertebral tenderness. Normal ROM C/T/L spine. Tenderness to palpation over lateral right ribs, approx 9th/10th ribs. No bruising or lacerations. Skin General skin exam: no rashes or lesions noted Extrem General: Yes capillary refill normal and Yes no clubbing, cyanosis or edema Psych Appearance: grossly normal Mental Status: mental status grossly normal Speech and movement: Normal speech and movement present Assessment & Plan Assessment & Plan (1) Fracture of rib of right side: Code(s): S22.31XA - Fracture of one rib, right side, initial encounter for closed fracture Qualifiers: Encounter type: initial encounter Rib fracture type: single rib Fracture type: closed Qualified Code(s): S22.31XA - Fracture of one rib, right side, initial encounter for closed fracture Plan: XR done in office reveals mildly displaced fracture through the lateral aspect of the right 10th rib. Lungs clear. He cannot take NSAIDs. I am going to start him on a short course of pain medication for this, as he is having difficulty with ADLs due to pain. We discussed indications, use, possible risks and side effects associated with this medication. We reviewed using this sparingly, only for breakthrough pain if conservative measures with Tylenol, ice, lidocaine patches to not help alleviate pain. He will f/e with PCP as needed or the ED if he develops any worsening pain or shortness of breath. All questions were answered and he agrees to plan. (2) Status post fall: Code(s): Z91.81 - History of falling Plan: As above Medications: New oxycodone Partial Fill upon patient request. 5 mg PO BID 5 days PRN 10 tabs 0RF pain S22.31XA - Fracture of one rib, right side, initial encounter for closed fracture Coding Level of Care Code Est Pt Level 4 (16027) Diagnoses Closed fracture of one rib of right side, initial encounter S22.31XA Encounter type: initial encounter Rib fracture type: single rib Fracture type: closed Status post fall Z91.81
== END 2023-07-30 10:44 | disposition home or self-care (01) ==
PROVIDERS: PCP Nurse Practitioner Family; Visit Provider Nurse Practitioner Family
DX: S22.31XA Fracture of one rib, right side, initial encounter for closed fracture (principal); Z91.81 History of falling
CPT/HCPCS: 99214

== ENCOUNTER 2023-07-30 10:12 | Outpatient (REF) | payer MEDICARE, SELFPAY ==
--- NOTE | ~2023-07-30 | XR_ITS ---
EXAMINATION: XR RIBS, RIGHT CLINICAL INFORMATION: Right rib pain following a fall. COMPARISON: Chest radiograph dated 05/28/2023. TECHNIQUE: PA view of the chest as well as 3 views of the right ribs. FINDINGS: No airspace consolidation. No pleural effusion or pneumothorax. Stable cardiomediastinal silhouette. Sternal hardware is redemonstrated. Mildly displaced fracture through the lateral aspect of the right 10th rib with a fracture gap measuring up to 0.4 cm. No lytic or blastic osseous lesion. No abnormal soft tissue calcification. XR/XR ribs RT min 3V w CXR1V IMPRESSION: Mildly displaced fracture through the lateral aspect of the right 10th rib with a fracture gap measuring up to 0.4 cm.
[2023-07-30 13:09] LABS: MANUAL DIFF FLAG NO
[2023-07-30 13:12] LABS: Appearance Urine Clear; Color Urine Yellow; Glucose Urine UA Negative (Negative); Leukocyte Esterase Urine Negative (Negative); Nitrite Urine Negative (Negative); Urine Blood Negative (Negative); Urine Ketones Negative (Negative); Urine Protein Negative (Neg-Trace)
[2023-07-30 13:29] LABS: Basophils Percent Auto 0.3 % (0-2); Eosinophils Absolute Auto 0.2 X10*3/uL (0.0-0.4); Eosinophils Percent Auto 2.4 % (0-4); Hematocrit 48.8 % (42.0-52.0); Hemoglobin 16.4 g/dl (14.0-18.0); Imm Gran Abs Auto 0.02 X10*3/uL (0.00-0.03); Imm Gran Pct Auto 0.3 % (0.0-0.4); Lymphocytes Absolute Auto 1.7 X10*3/uL (1.2-4.9); Lymphocytes Percent Auto 23.1 % (20-40); Mean Corpuscular HGB Conc 33.6 g/dl (31.0-36.0); Mean Corpuscular Hemoglobin 33.3 pg (27.0-33.0); Mean Corpuscular Volume 99.2 fL (80.0-98.0); Mean Platelet Volume 10.9 fL (9.4-12.4); Monocytes Absolute Auto 0.4 X10*3/uL (0.1-1.2); Neutrophils Absolute Auto 5.2 x10*3/uL (2.0-8.3); Neutrophils Percent Auto 68.9 % (45-73); Platelet Count 163 X10*3/uL (160-400); Red Blood Count 4.92 X10*6/uL (4.60-5.80); Red Cell Distribution Width 12.4 % (11.0-16.0); White Blood Count 7.5 X10*3/uL (4.8-10.8)
[2023-07-30 13:49] LABS: Anion Gap 11 (12-20); Blood Urea Nitrogen 14 mg/dL (9-16); Carbon Dioxide 28 mmol/L (22-29); Chloride 105 mmol/L (96-108); Potassium 4.6 mmol/L (3.3-5.1); Sodium 139 mmol/L (135-145)
[2023-07-30 13:50] LABS: Alanine Aminotransferase 24 U/L (0-40); Albumin Level 4.3 g/dL (3.5-5.0); Alkaline Phosphatase 133 U/L (39-117); Aspartate Amino Transferase 22 U/L (5-37); Bilirubin Total 0.6 mg/dL (0.0-1.0); Calcium 9.6 mg/dL (8.4-10.2); Cholesterol 136 mg/dL (<200); Estimated Glomerular Filt Rate > 60; Glucose Fasting 121 mg/dL (60-99); HDL Cholesterol 63 mg/dL (>40); LDL Cholesterol Calculated 61 mg/dL (<100); Total Protein 7.8 g/dL (6.5-8.0); Triglycerides 63 mg/dL (<150)
[2023-07-30 14:07] LABS: TSH reflex Free T4 2.12 uIU/mL (0.32-4.0)
== END 2023-07-30 10:13 | disposition home or self-care (01) ==
LOC: HO.HMGCX 10:12
PROVIDERS: PCP Nurse Practitioner Family; Referring Provider Nurse Practitioner Family; Visit Provider Nurse Practitioner Family
DX: R07.81 Pleurodynia (principal); Z91.81 History of falling; I25.10 Atherosclerotic heart disease of native coronary artery without angina pectoris; E78.5 Hyperlipidemia, unspecified
CPT/HCPCS: 36415; 71101; 80053; 80061; 81003; 84443; 85025

== ENCOUNTER 2023-11-19 10:06 | Outpatient (AMB) | payer MEDICARE, SELFPAY ==
[2023-11-19 10:20] VITALS: BP 140/72; PULSE 80; O2SAT 97; BMI 31.5
--- NOTE | 2023-11-19 10:20 | A.OFFPC_ITS ---
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 Will order labs. Colon screen is up to date. Due for PSA in the near future, will order. Denies dribbling with urination, weak stream, and frequent nocturia. Pt follows up with cardiology. [facility] Medical History Hypertension DEAN (dyspnea on exertion) Severe aortic stenosis Surgical History Hx of detached retina repair Hx of colonoscopy History of eye surgery S/P CABG x 3 History of left cataract surgery Family History Father CVD (cardiovascular disease) History of heart attack Mother No problems noted. Social History Housing: House Are you a primary home visit field care manager to a significant other at home: No Do you presently have visiting nurse or other home services: No Alcohol intake: current Alcohol intake frequency: 3 or more drinks per day Alcohol type: beer Patient Tobacco Use Status: Former Tobacco user Tobacco use type: Cigarette Years Smoked: 20 +/- e-Cigarette/Vaping Use: Never Used Second Hand Smoke Exposure: Yes Substance Use Type: Marijuana service: No Current occupational status: retired Cognitive needs: No Hearing needs: No Vision needs: No Questionnaire PHQ-9 Over the last 2 weeks, how often have you been bothered by any of the following problems? 1. Little interest or pleasure in doing things: not at all 2. Feeling down, depressed, or hopeless: not at all 3. Trouble falling or staying asleep, or sleeping too much: not at all 4. Feeling tired or having little energy: not at all 5. Poor appetite or overeating: not at all 6. Feeling bad about yourself - or that you are a failure or have let yourself or your family down: not at all 7. Trouble concentrating on things, such as reading the newspaper or watching television: not at all 8. Moving or speaking so slowly that other people could have noticed. Or the opposite - being so fidgety or restless that you have been moving around a lot more than usual: not at all 9. Thoughts that you would be better off or of hurting yourself in some way: not at all Total score: 0 Depression Screening Interpretation: Negative Depression Screening Done: Yes 24386 - PHQ-9 Billing: Yes Source: Developed by Drs. Candido Rojas, Aura Woodward, Anthony Gary and colleagues, with an educational michelle from [employer]. Thrive Questionnaire Date Thrive assessed: 11/19/23 I am a: Patient What is your living situation today?: I have a steady place to live Within the past 12 months, did the food you bought not last and you didn't have the money to get more?: Never true Within the past 12 months, did you worry whether your food would run out before you got money to buy more?: Never true Do you have trouble paying for medicines?: No Do you have trouble getting transportation to medical appointments?: No Do you have trouble paying your heating and electricity bill?: No Do you have trouble taking care of your child, family member or friend?: No Do you have trouble with day-to-day activities such as bathing, preparing meals, shopping, managing finances, etc.?: No Are you currently unemployed and looking for a job?: No Are you interested in more education?: No Please select the resources that you would like help with: None Currently or been in a relationship where the following occur: No concerns reported THRIVE Score: 0 AUDIT C Alcohol Use Questionnaire (AUDIT-C) 1. How often do you have a drink containing alcohol?: 4 or more times a week 2. How many drinks containing alcohol do you have on a typical day when you are drinking?: 5 or 6 3. How often do you have six or more drinks on one occasion?: Daily or almost daily Total Score: 10 Score Reviewed/Action Taken: Yes JOSS-7 AMB Questionnaire JOSS-7 Date JOSS - 7 assessed: 11/19/23 Feeling nervous, anxious, or on edge: 0 = Not at all Not being able to stop or control worryin = Not at all Worrying too much about different things: 0 = Not at all Trouble relaxin = Not at all Being so restless that it is hard to sit still: 0 = Not at all Becoming easily annoyed or irritable: 0 = Not at all Feeling afraid as if something awful might happen: 0 = Not at all Total JOSS-7 score (0-4 normal; 5-9 mild; 10-14 moderate; 15-21 severe): 0 Source: Developed by Drs. Candido Rojas, Aura Woodward, Anthony Gary and colleagues, with an educational michelle from [employer]. JOSS-7 Assessment Billing JOSS-7 Assessment Tool: JOSS-7 Assessment [id number] Review of Systems Const Denies chills and Denies fever(s) Eyes Denies blurry vision ENT Denies vertigo, Denies dizziness and Denies sore throat Card Denies chest pain at rest, Denies chest pain with activity, Denies diaphoresis, Denies dyspnea and Denies dyspnea on exertion Resp Denies cough, Denies dyspnea, Denies dyspnea on exertion and Denies wheezing GI Denies abdominal pain, Denies melena, Denies hematochezia, Denies constipation, Denies diarrhea and Denies loose stools Denies hematuria Musc Denies numbness and Denies tingling Skin/Breast Denies lesions Neuro Denies vertigo, Denies dizziness, Denies numbness and Denies tingling Psych Denies anxiety, Denies depression, Denies homicidal ideation, Denies suicidal ideation and Denies other (substance abuse) Aller/Immun Denies wheezing Physical exam (Primary Care) Vital Signs: Last Vital Signs Pulse 80 11/19/23 10:20 BP 132/70 11/19/23 11:04 Pulse Ox 97 11/19/23 10:20 Oxygen Delivery Method Room Air 11/19/23 10:20 BMI result Body Mass Index 31.5 Tobacco/Smoking Status: Tobacco use Status Tobacco use date assessed 06/10/23 11/19/23 10:21 Patient Tobacco Use Status Former Tobacco user 11/19/23 10:21 Tobacco use type Cigarette 11/19/23 10:21 e-Cigarette/Vaping Use Never Used 11/19/23 10:21 PHQ-9: PHQ-9 Score PHQ-9: Total score 0 11/19/23 11:04 Depression Screening Interpretation: Negative Thrive Assessment: Date of Thrive Assessment Date Thrive assessed 11/19/23 11/19/23 10:21 Currently or been in a relationship where the following occur: No concerns reported Const General: cooperative Nutritional Appearance: well nourished Orientation/consciousness: patient oriented x3 HENMT Head: Yes normal to inspection, Yes normocephalic and Yes atraumatic Ears: TM's normal bilaterally Eyes General: appearance normal, both eyes and all related structures Alignment and Position: alignment normal and position normal Neck Neck: Yes normal visual inspection and Yes no lymphadenopathy Thyroid: Thyroid normal Resp Effort & Inspection: normal respiratory effort Auscultation: clear to auscultation bilaterally Cardio Rate: regular rate Rhythm: regular rhythm Heart sounds: S1 normal heart sound present, S2 normal heart sound present and no murmurs GI Palpation (GI): Soft to palpation and nontender Auscultation: normal bowel sounds Other: JOEL: prostate not enlarged Male General Exam: Yes normal external exam Penis: normal penis Scrotum: scrotum normal, testes descended bilaterally and no inguinal hernias Testes: no testicular mass Skin Other: left antihelix with round dry lesion Rashes: no rashes Neuro General: patient oriented x3, moves all extremities, no focal motor deficits and deep tendon reflexes 2+ bilaterally Romberg Test: Negative Extrem Right lower extremity: edema (trace) Left lower extremity: edema (trace) Psych Appearance: grossly normal Mental Status: mental status grossly normal Speech and movement: Normal speech and movement present Affect: normal affect Attitude: cooperative Thought process: Normal thought process present Thought content: Normal thought content present Insight: Good insight present (Psych) Judgement: Good judgement present (Psych) Assessment and Plan Assessment & Plan (1) Screening PSA (prostate specific antigen): Code(s): Z12.5 - Encounter for screening for malignant neoplasm of prostate Plan: PSA ordered (2) Skin lesion: Code(s): L98.9 - Disorder of the skin and subcutaneous tissue, unspecified Plan: Referred to derm (3) Encounter for routine adult physical exam with abnormal findings: Code(s): Z00.01 - Encounter for general adult medical examination with abnormal findings (4) Vitamin D deficiency: Code(s): E55.9 - Vitamin D deficiency, unspecified (5) Physical exam: Code(s): Z00.00 - Encounter for general adult medical examination without abnormal findings Plan: Labs ordered Plan The patient agreed to the use of a medical oncology physician for this encounter. Scribed for NICOLASA Muse-FRANKLYN by Xochilt Kc medical oncology physician, on 11/19/2023 at 10:40 EST. Orders: Orders Comprehensive [place]. Panel Fast 11/19/23 Z00.00 - Encounter for general adult medical examination without abnormal findings Lipid Panel 11/19/23 Z00.00 - Encounter for general adult medical examination without abnormal findings Prostate Specific Antigen Scr 11/19/23 Z12.5 - Encounter for screening for malignant neoplasm of prostate Complete Blood Count Auto Diff 11/19/23 Z00.00 - Encounter for general adult medical examination without abnormal findings TSH reflex Free T4 11/19/23 Z00.00 - Encounter for general adult medical examination without abnormal findings UA CC w/rflx Micro + Cult 11/19/23 Z00.00 - Encounter for general adult medical examination without abnormal findings Vitamin D 25-OH Total 11/19/23 E55.9 - Vitamin D deficiency, unspecified Referrals Dermatology Referral L98.9 - Disorder of the skin and subcutaneous tissue, unspecified Coding Level of Care Code Est Pt Prev Care >65y(95566) Diagnoses Screening PSA (prostate specific antigen) Z12.5 Skin lesion L98.9 Encounter for routine adult physical exam with abnormal findings Z00.01 Vitamin D deficiency E55.9 Physical exam Z00.00 Additional Codes JOSS-7 Assessment Billing - JOSS-7 Assessment Tool: JOSS-7 Assessment [id number] ([id number])
[2023-11-19 11:04] VITALS: BP 132/70
== END 2023-11-19 11:10 | disposition home or self-care (01) ==
PROVIDERS: PCP Nurse Practitioner Family; Visit Provider Nurse Practitioner Family
DX: Z00.00 Encounter for general adult medical examination without abnormal findings (principal); Z12.5 Encounter for screening for malignant neoplasm of prostate; L98.9 Disorder of the skin and subcutaneous tissue, unspecified; E55.9 Vitamin D deficiency, unspecified
CPT/HCPCS: 99397

== ENCOUNTER 2024-02-19 10:01 | Outpatient (AMB) | payer MEDICARE, SELFPAY ==
--- NOTE | 2024-02-19 10:25 | A.OFFVIS_ITS ---
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 He is status post bypass surgery and aortic valve replacement with a bioprosthetic valve. He is doing well. Physically active and has no exertional symptoms. He has chronic right bundle-branch block. 02/04/2023: He returns for follow-up. He has been doing fine. No chest d iscomfort or shortness of breath. Blood pressure is well controlled. EKG has right bundle-branch block as before. No exertional concerns. ECHO reviewed showing normal LVEF with basal inferior wall motion abnormality. Bioprosthetic valve was functioning fine. 02/19/2024: He is here for follow-up. He has bradycardia on EKG but denying any symptoms. In particular no dizziness, fatigue, shortness of breath or chest discomfort. He is active and goes up and down stairs multiple times without any cardiovascular issues. He does have some arthritis in his knee and hip hurts when he does this frequently. [facility] Medical History Hypertension DEAN (dyspnea on exertion) Severe aortic stenosis Surgical History Hx of detached retina repair Hx of colonoscopy History of eye surgery S/P CABG x 3 History of left cataract surgery Family History Father CVD (cardiovascular disease) History of heart attack Mother No problems noted. Social History Housing: House Are you a primary physician primary care sports medicine to a significant other at home: No Do you presently have visiting nurse or other home services: No Alcohol intake: current Alcohol intake frequency: 3 or more drinks per day Alcohol type: beer Patient Tobacco Use Status: Former Tobacco user Tobacco use type: Cigarette Years Smoked: 20 +/- e-Cigarette/Vaping Use: Never Used Second Hand Smoke Exposure: Yes Substance Use Type: Marijuana service: No Current occupational status: retired Cognitive needs: No Hearing needs: No Vision needs: No Review of Systems Const Denies chills, Denies fatigue, Denies fever(s), Denies frequent falls, Denies weakness, Denies weight gain and Denies weight loss ENT Denies dizziness Card Denies chest pain, Denies leg edema, Denies lightheadedness, Denies palpitations, Denies dyspnea and Denies dyspnea on exertion Resp Denies cough, Denies dyspnea and Denies dyspnea on exertion GI Denies hematochezia Musc Denies abnormal gait, Denies muscle weakness, Denies numbness, Denies radiating pain into limb and Denies tingling Neuro Denies abnormal gait, Denies dizziness, Denies frequent falls, Denies numbness, Denies tingling and Denies weakness Endo Denies fatigue and Denies palpitations Physical Exam Vital Signs: Last Vital Signs Pulse 48 L 02/19/24 10:26 BP 130/70 02/19/24 10:26 BMI result Body Mass Index 31.0 GENERAL APPEARANCE: in no acute distress, pleasant. NECK/THYROID: no carotid bruit, no jugular venous distention. SKIN: Midline sternotomy scar. HEART: no murmurs, bradycardic. LUNGS: clear to auscultation bilaterally. ABDOMEN: soft, nontender. EXTREMITIES: no edema. PERIPHERAL PULSES: Left radial artery has been harvested for bypass. Otherwise equal pulses. NEUROLOGIC: No gross deficits, AAO X 3 Office Procedures EKG Details: Sinus bradycardia 48 beats per minute, leftward axis, right bundle-branch block, QTC is 419 milliseconds. [id number], Complete Assessment & Plan Assessment & Plan (1) S/P CABG x 3: Comment: GUIDRY to LAD, left radial graft to the diagonal branch of the LAD, right GSV to the PDA, 05/02/2020 Code(s): Z95.1 - Presence of aortocoronary bypass graft Category: Medical (2) S/P AVR: Comment: 25 mm pericardial bioprosthesis 05/02/2020 Code(s): Z95.2 - Presence of prosthetic heart valve Category: Medical (3) Sinus bradycardia: Code(s): R00.1 - Bradycardia, unspecified Category: Medical Plan Pleasant 67 gentleman is here for follow-up. He is status post aortic valve replacement as well as coronary artery bypass surgery with GUIDRY to LAD, left radial graft to diagonal and saphenous vein graft to the right coronary artery. He has sinus bradycardia on the EKG. He is on metoprolol tartrate 50 mg twice a day. His heart rate rises with activity. Currently no changes required an medications. He will continue same medications and will see us back in 1 year. We discussed that if he gets any new symptoms he will reach out to us in the next year otherwise follow-up in 1 year. Thank you for allowing me to participate in the care of your patient. Please feel free to contact me if you have any questions. Coding Level of Care Code Est Pt Level 4 (26286) Diagnoses S/P CABG x 3 Z95.1 S/P AVR Z95.2 Sinus bradycardia R00.1 CPT Codes EKG - CPT: 34987-[id number], Complete ([id number])
[2024-02-19 10:26] VITALS: BP 130/70; PULSE 48; BMI 31.0
== END 2024-02-19 10:59 | disposition home or self-care (01) ==
PROVIDERS: PCP Nurse Practitioner Family; Visit Provider Internal Medicine Cardiovascular Disease
DX: Z95.1 Presence of aortocoronary bypass graft (principal); Z95.2 Presence of prosthetic heart valve; R00.1 Bradycardia, unspecified
CPT/HCPCS: 93010; 99214

== ENCOUNTER → 2024-02-19 10:01 | Outpatient (BNVA) | payer OTHER, MEDICARE, SELFPAY | PROVIDERS: PCP Nurse Practitioner Family; Visit Provider Internal Medicine Cardiovascular Disease | DX: R00.1 Bradycardia, unspecified (principal); Z95.1 Presence of aortocoronary bypass graft; Z95.2 Presence of prosthetic heart valve | CPT/HCPCS: 93005 ==

== ENCOUNTER 2024-05-31 10:12 | Outpatient (AMB) | payer MEDICARE, SELFPAY ==
[2024-05-31 10:38] VITALS: BP 126/70; PULSE 63; TEMP 36.6; O2SAT 97; BMI 31.7
--- NOTE | 2024-05-31 10:38 | A.OFFPC_ITS ---
Vital Signs 05/31/24 10:38 Height 5 ft 11 in Weight 227 lb BMI 31.7 BP 126/70 Blood Pressure Location Rt brachial Position Sitting Pulse 63 Pulse Source Pulse Oximeter Temp 97.9 F Temp Source Oral Pulse Oximetry (%) 97 Oxygen Delivery Method Room Air Intake Visit Reasons: 6 Mo F/U Allergies No Known Allergies Allergy (Verified 05/31/24 11:07) Medication List - Last Reconciled 05/31/24 by Jack Mckenna, [facility]- amlodipine 10 mg PO DAILY aspirin 81 mg PO DAILY atorvastatin 80 mg PO DAILY 90 days lisinopril 10 mg PO DAILY metoprolol tartrate 50 mg PO BID Tobacco use date assessed: 05/31/24 Fall risk assessment: No Falls in past year Last assessed Fall Risk: 05/31/24 Dental Screening Dental Screen Date: 05/31/24 Did you have a dental visit in the last 12 months?: No Did you have a dental problem in the last 6 months where you did not have access to dental care?: No Was dental information given to patient?: Patient declined HPI 6 Mo F/U HPI Details Chief Complaint Follow-up for hypertension and hyperlipidemia management. History of Present Illness The patient is a 69-year-old male presenting with hypertension and hyperlipidemia. The patient reports that his blood pressure is stable without any recent episodes of elevated readings. He denies experiencing any chest pain, shortness of breath, orthopnea, or paroxysmal nocturnal dyspnea. He has been encouraged to have his laboratory work drawn in the near future. His hypertension and hyperlipidemia have been managed with lifestyle modifications and medications, and there is no acute exacerbation reported during this visit. The trace edema noted at his ankles is a new observation but is not currently associated with any pain or discomfort. Social History Health Maintenance - Encouragement to have laboratory tests drawn soon for ongoing management of hy pertension and hyperlipidemia. Review of Systems - Cardiovascular: Denies chest pain - Respiratory: Denies shortness of breat h, nocturnal dyspnea, orthopnea Physical Exam General: Cooperative, healthy appearing, comfortable, no acute distress and well developed Orientation: Patient oriented x3 Limitations: No limitations Head: Normal to inspection Ears: Hearing grossly normal bilaterally Nose: Normal external nose present Face and sinus: Normal facial exam Eyes: Appearance normal, both eyes and all related structures Neck: Normal visual inspection and Yes full ROM Respiratory: Normal respiratory effort and able to speak in complete sentences. Clear to auscultation bilaterally Cardiovascular: Regular rate and rhythm. Normal S1 and S2 GI: Normal to inspection. Soft to palpation and nontender Skin: No rashes or lesions noted Neuro: Patient oriented x3 Extremities: Trace edema to ankles Results Plan - Discussed drawing labs in the near fut ure for ongoing assessment and managemen t of essential hypertension and hyperlipidemia. - Plan to follow up in six months to brennen camposate the status of hypertension and hyperlipidemia. Discussion Notes I discussed with the patient that his blood pressure is currently stable and emphasized the importance of continuing medication and lifestyle adjustments. I explained the need for routine lab tests to monitor the effects of his managemen t plan, as well as the importance of attention to lipid levels due to hyperlipidemia. We agreed on a follow-up appointment in six months to reassess his condition. I noted that the trace edema in his ankles would be monitored and does not currently warrant additional intervention given the absence of associated symptoms. Patient Instructions - Schedule an appointment for routine [employer] o[facility] work in the near future. - Continue prescribed medications as dir ected. - Monitor and report any changes such as shortness of breath or chest pain. - Return for follow-up in six months or sooner if symptoms worsen. [facility] Medical History Hypertension DEAN (dyspnea on exertion) Severe aortic stenosis Surgical History Hx of detached retina repair Hx of colonoscopy History of eye surgery S/P CABG x 3 History of left cataract surgery Family History Father CVD (cardiovascular disease) History of heart attack Mother No problems noted. Social History Housing: House Are you a primary home care music therapist to a significant other at home: No Do you presently have visiting nurse or other home services: No Alcohol intake: current Alcohol intake frequency: 3 or more drinks per day Alcohol type: beer Patient Tobacco Use Status: Former Tobacco user Tobacco use type: Cigarette Years Smoked: 20 +/- e-Cigarette/Vaping Use: Never Used Second Hand Smoke Exposure: Yes Substance Use Type: Marijuana service: No Current occupational status: retired Cognitive needs: No Hearing needs: No Vision needs: No Questionnaire PHQ-9 Over the last 2 weeks, how often have you been bothered by any of the following problems? 1. Little interest or pleasure in doing things: not at all 2. Feeling down, depressed, or hopeless: not at all 3. Trouble falling or staying asleep, or sleeping too much: not at all 4. Feeling tired or having little energy: not at all 5. Poor appetite or overeating: not at all 6. Feeling bad about yourself - or that you are a failure or have let yourself or your family down: not at all 7. Trouble concentrating on things, such as reading the newspaper or watching television: not at all 8. Moving or speaking so slowly that other people could have noticed. Or the opposite - being so fidgety or restless that you have been moving around a lot more than usual: not at all 9. Thoughts that you would be better off or of hurting yourself in some way: not at all Total score: 0 Depression Screening Interpretation: Negative Depression Screening Done: Yes 13658 - PHQ-9 Billing: Yes Source: Developed by Drs. Candido Rojas, Aura Woodward, Anthony Gary and colleagues, with an educational michelle from [employer]. Thrive Questionnaire Date Thrive assessed: 05/31/24 I am a: Patient What is your living situation today?: I have a steady place to live Within the past 12 months, did the food you bought not last and you didn't have the money to get more?: Never true Within the past 12 months, did you worry whether your food would run out before you got money to buy more?: Never true Do you have trouble paying for medicines?: No Do you have trouble getting transportation to medical appointments?: No Do you have trouble paying your heating and electricity bill?: No Do you have trouble taking care of your child, family member or friend?: No Do you have trouble with day-to-day activities such as bathing, preparing meals, shopping, managing finances, etc.?: No Are you currently unemployed and looking for a job?: No Are you interested in more education?: No Please select the resources that you would like help with: None Currently or been in a relationship where the following occur: No concerns reported THRIVE Score: 0 AUDIT C Alcohol Use Questionnaire (AUDIT-C) 1. How often do you have a drink containing alcohol?: 2-3 times a week 2. How many drinks containing alcohol do you have on a typical day when you are drinking?: 3 or 4 3. How often do you have six or more drinks on one occasion?: Less than monthly Total Score: 5 Score Reviewed/Action Taken: Yes JOSS-7 AMB Questionnaire JOSS-7 Date JOSS - 7 assessed: 05/31/24 Feeling nervous, anxious, or on edge: 0 = Not at all Not being able to stop or control worryin = Not at all Worrying too much about different things: 0 = Not at all Trouble relaxin = Not at all Being so restless that it is hard to sit still: 0 = Not at all Becoming easily annoyed or irritable: 0 = Not at all Feeling afraid as if something awful might happen: 0 = Not at all Total JOSS-7 score (0-4 normal; 5-9 mild; 10-14 moderate; 15-21 severe): 0 Source: Developed by Drs. Candido Rojas, Aura Woodward, Anthony Gary and colleagues, with an educational michelle from [employer]. JOSS-7 Assessment Billing JOSS-7 Assessment Tool: JOSS-7 Assessment 44175 Physical exam (Primary Care) Vital Signs: Last Vital Signs Temp 97.9 F 05/31/24 10:38 Pulse 63 05/31/24 10:38 BP 126/70 05/31/24 10:38 Pulse Ox 97 05/31/24 10:38 Oxygen Delivery Method Room Air 05/31/24 10:38 BMI result Body Mass Index 31.7 Tobacco/Smoking Status: Tobacco use Status Tobacco use date assessed 05/31/24 05/31/24 10:41 Patient Tobacco Use Status Former Tobacco user 05/31/24 10:41 Tobacco use type Cigarette 05/31/24 10:41 e-Cigarette/Vaping Use Never Used 05/31/24 10:41 PHQ-9: PHQ-9 Score PHQ-9: Total score 0 05/31/24 10:41 Depression Screening Interpretation: Negative Thrive Assessment: Date of Thrive Assessment Date Thrive assessed 05/31/24 05/31/24 10:41 Currently or been in a relationship where the following occur: No concerns reported Results AMB Hemoglobin A1c AMB Hemoglobin A1c Cancelled % Last Edit by Marcos Ortiz CMA on 10:44 AMB Hemoglobin A1c previously reported as 10.9 Marcos Ortiz 05/31/24 1 0:44 CANCELLED added as an error, wrong patient Results Reviewed Results Reviewed: Laboratory Last Values Hgb A1c (Clinic) Cancelled 05/31/24 10:43 Coding Level of Care Code Est Pt Level 3 (11087) Diagnoses Hypertension I10 Hyperlipidemia E78.5 Additional Codes JOSS-7 Assessment Billing - JOSS-7 Assessment Tool: JOSS-7 Assessment 12884 ([id number]) PHQ-9 - 56943 - PHQ-9 Billing: Yes ([id number]) Assessment & Plan Assessment & Plan (1) Hypertension: Code(s): I10 - Essential (primary) hypertension Category: Medical (2) Hyperlipidemia: Code(s): E78.5 - Hyperlipidemia, unspecified Category: Medical Plan .
== END 2024-05-31 11:20 | disposition home or self-care (01) ==
PROVIDERS: PCP Nurse Practitioner Family; Visit Provider Nurse Practitioner Family
DX: I10 Essential (primary) hypertension (principal); E78.5 Hyperlipidemia, unspecified

== ENCOUNTER → 2024-05-31 10:12 | Outpatient (BNVA) | payer MEDICARE, SELFPAY | PROVIDERS: PCP Nurse Practitioner Family; Visit Provider Nurse Practitioner Family | DX: I10 Essential (primary) hypertension (principal); E78.5 Hyperlipidemia, unspecified | CPT/HCPCS: 96127; 99212 ==

== ENCOUNTER 2024-11-29 10:13 | Outpatient (AMB) | payer MEDICARE, SELFPAY ==
[2024-11-29 10:23] VITALS: BP 126/70; PULSE 64; RESP 16; TEMP 36.7; O2SAT 96; BMI 32.5
--- NOTE | 2024-11-29 10:23 | A.OFFPC_ITS ---
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 Accompanied by: Self / Same As Patient Allergies No Known Allergies Allergy (Verified 11/29/24 11:07) Medication List - Last Reconciled 11/29/24 by JUANA HerbertP- amlodipine 10 mg PO DAILY aspirin 81 mg PO DAILY atorvastatin 80 mg PO DAILY 90 days lisinopril 10 mg PO DAILY metoprolol tartrate 50 mg PO BID Tobacco use date assessed: 11/29/24 Fall risk assessment: No Falls in past year Last assessed Fall Risk: 11/29/24 Dental Screening Dental Screen Date: 11/29/24 Did you have a dental visit in the last 12 months?: No Did you have a dental problem in the last 6 months where you did not have access to dental care?: No Was dental information given to patient?: Patient declined (Dentures) HPI 6 Mo F/U HPI Details Chief Complaint The patient presents for follow-up management of dyslipidemia. History of Present Illness The patient is a 69-year-old male presenting with dyslipidemia. 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 Additionally, he reports no headaches or dizziness and states that he is doing quite well overall. HTN: stable Social History Health Maintenance Review of Systems - Cardiovascular: Denies chest pain, dys pnea, paroxysmal nocturnal dyspnea, or orthopnea - Neurological: Denies headaches or dizz iness Physical Exam General: Cooperative, healthy appearing, comfortable, no acute distress and well developed, obesity Orientation: Patient oriented x3 Limitations: No limitations Head: Normal to inspection Ears: Hearing grossly normal bilaterally Nose: Normal external nose present Face and sinus: Normal facial exam Eyes: Appearance normal, both eyes and all related structures Neck: Normal visual inspection and Yes full ROM Respiratory: Normal respiratory effort and able to speak in complete sentences. Clear to auscultation bilaterally Cardiovascular: Regular rate and rhythm. Normal S1 and S2, no carotid bruits noted GI: Normal to inspection. Soft to palpation and nontender Skin: No rashes or lesions noted Neuro: Patient oriented x3 Extremities: Trace edema at bilaterally lower extremities Results Plan Patient was informed and verbally consented to the use of an ambient scribe for clinic note documentation during this visit. Discussion Notes Patient Instructions [facility] Medical History Hypertension DEAN (dyspnea on exertion) Severe aortic stenosis Surgical History Hx of detached retina repair Hx of colonoscopy History of eye surgery S/P CABG x 3 History of left cataract surgery Family History Father CVD (cardiovascular disease) History of heart attack Mother No problems noted. Social History Housing: House Are you a primary tree care foreman to a significant other at home: No Do you presently have visiting nurse or other home services: No Alcohol intake: current Alcohol intake frequency: 3 or more drinks per day Alcohol type: beer Patient Tobacco Use Status: Former Tobacco user Tobacco use type: Cigarette Years Smoked: 20 +/- e-Cigarette/Vaping Use: Never Used Second Hand Smoke Exposure: Yes Substance Use Type: Marijuana service: No Current occupational status: retired Cognitive needs: No Hearing needs: No Vision needs: No Questionnaire Thrive Questionnaire Date Thrive assessed: 05/31/24 I am a: Patient What is your living situation today?: I have a steady place to live Within the past 12 months, did the food you bought not last and you didn't have the money to get more?: Never true Within the past 12 months, did you worry whether your food would run out before you got money to buy more?: Never true Do you have trouble paying for medicines?: No Do you have trouble getting transportation to medical appointments?: No Do you have trouble paying your heating and electricity bill?: No Do you have trouble taking care of your child, family member or friend?: No Do you have trouble with day-to-day activities such as bathing, preparing meals, shopping, managing finances, etc.?: No Are you currently unemployed and looking for a job?: No Are you interested in more education?: No Please select the resources that you would like help with: None Currently or been in a relationship where the following occur: No concerns repor perlita THRIVE Score: 0 JOSS-7 AMB Questionnaire JOSS-7 Date JOSS - 7 assessed: 05/31/24 Source: Developed by Drs. Candido Rojas, Aura Woodward, Anthony Gary and colleagues, with an educational michelle from [employer]. Physical exam (Primary Care) Vital Signs: Last Vital Signs Temp 98.1 F 11/29/24 10:23 Pulse 64 11/29/24 10:23 Resp 16 11/29/24 10:23 BP 126/70 11/29/24 10:23 Pulse Ox 96 11/29/24 10:23 Oxygen Delivery Method Room Air 11/29/24 10:23 BMI result Body Mass Index 32.5 Tobacco/Smoking Status: Tobacco use Status Tobacco use date assessed 11/29/24 11/29/24 10:29 Patient Tobacco Use Status Former Tobacco user 11/29/24 10:29 Tobacco use type Cigarette 11/29/24 10:29 e-Cigarette/Vaping Use Never Used 11/29/24 10:29 Thrive Assessment: Date of Thrive Assessment Date Thrive assessed 05/31/24 11/29/24 10:29 Currently or been in a relationship where the following occur: No concerns reported Coding Level of Care Code Est Pt Level 3 (15449) Diagnoses Hypertension I10 Hyperlipidemia E78.5 Obesity (BMI 30-39.9) E66.9 Assessment & Plan Assessment & Plan (1) Hypertension: Code(s): I10 - Essential (primary) hypertension Category: Medical (2) Hyperlipidemia: Code(s): E78.5 - Hyperlipidemia, unspecified Category: Medical Plan: . (3) Obesity (BMI 30-39.9): Code(s): E66.9 - Obesity, unspecified Category: Medical Plan .
== END 2024-11-29 11:02 | disposition home or self-care (01) ==
LOC: HO.HMCC 10:14
PROVIDERS: PCP Nurse Practitioner Family; Visit Provider Nurse Practitioner Family
DX: I10 Essential (primary) hypertension (principal); E66.9 Obesity, unspecified; Z68.32 Body mass index [BMI] 32.0-32.9, adult; E78.5 Hyperlipidemia, unspecified

== ENCOUNTER → 2024-11-29 10:13 | Outpatient (BNVA) | payer MEDICARE, SELFPAY | PROVIDERS: PCP Nurse Practitioner Family; Visit Provider Nurse Practitioner Family | DX: I10 Essential (primary) hypertension (principal); E78.5 Hyperlipidemia, unspecified; E66.9 Obesity, unspecified; Z68.32 Body mass index [BMI] 32.0-32.9, adult | CPT/HCPCS: 99212 ==

== ENCOUNTER 2025-02-23 13:56 | Outpatient (AMB) | payer MEDICARE, SELFPAY ==
[2025-02-23 14:07] VITALS: BP 132/60; PULSE 59; BMI 33.0
--- NOTE | 2025-02-23 14:07 | A.OFFVIS_ITS ---
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: No Allergies No Known Allergies Allergy (Verified 02/23/25 14:09) Medication List - Last Reconciled 02/23/25 by Michelle Ortega NP-C amlodipine 10 mg PO DAILY aspirin 81 mg PO DAILY atorvastatin 80 mg PO DAILY 90 days lisinopril 10 mg PO DAILY metoprolol tartrate 50 mg PO BID HPI HPI 1 yr f/up-r/s by us: Details: Jose is a 69-year-old male with past medical history of hypertension, hyperlipidemia, right bundle branch block, severe aortic stenosis, coronary artery disease, status post three-vessel coronary artery bypass grafting and aortic valve replacement 2020, sinus bradycardia who presents for follow-up. His last prior visit was 02/19/2024. Today he reports he has been feeling well with no concerning cardiac symptoms. He is bothered by knee pain which limits some of his physical activities. He is still able to climb stairs and recently remodeled to of his apartments without any cardiac concerns. He has no shortness of breath, PND, orthopnea. He will get some mild ankle edema at times. No chest discomfort at rest or with activity. He has a small dog which he walks routinely. Compliant with meds. [facility] Medical History Hypertension DEAN (dyspnea on exertion) Severe aortic stenosis Surgical History Hx of detached retina repair Hx of colonoscopy History of eye surgery S/P CABG x 3 History of left cataract surgery Family History Father CVD (cardiovascular disease) History of heart attack Mother No problems noted. Social History Housing: House Are you a primary residential child care counselor to a significant other at home: No Do you presently have visiting nurse or other home services: No Alcohol intake: current Alcohol intake frequency: 3 or more drinks per day Alcohol type: beer Patient Tobacco Use Status: Former Tobacco user Tobacco use type: Cigarette Years Smoked: 20 +/- e-Cigarette/Vaping Use: Never Used Second Hand Smoke Exposure: Yes Substance Use Type: Marijuana service: No Current occupational status: retired Cognitive needs: No Hearing needs: No Vision needs: No Review of Systems Const All systems reviewed & are unremarkable except as noted in HPI and below ENT Denies dizziness Card Denies chest pain, Denies chest pain at rest, Denies chest pain with activity, Denies rapid heart rate, Denies pedal edema, Denies edema, Denies leg edema, Denies lightheadedness, Denies palpitations, Denies dyspnea, Denies dyspnea on exertion and Denies orthopnea Resp Denies cough, Denies dyspnea and Denies dyspnea on exertion GI Denies hematochezia and Denies change in stool character Musc Denies abnormal gait, Denies limited range of motion, Denies muscle cramps, Denies muscle weakness, Denies numbness, Denies radiating pain into limb, Denies stiffness and Denies tingling Neuro Denies abnormal gait, Denies dizziness, Denies numbness and Denies tingling Endo Denies palpitations Physical Exam Vital Signs: Last Vital Signs Pulse 59 02/23/25 14:07 BP 132/60 02/23/25 14:07 BMI result Body Mass Index 33.0 Const General: cooperative, healthy appearing, comfortable and no acute distress Orientation/consciousness: patient oriented x3 Neck Neck: Yes normal visual inspection and Yes no JVD Resp Effort & Inspection: normal respiratory effort Auscultation: clear to auscultation bilaterally, no rales, no rhonchi and no wheezes Cardio Rate: regular rate Rhythm: regular rhythm Heart sounds: S1 normal heart sound present, S2 normal heart sound present, no gallops, no murmurs and no rubs Neuro General: patient oriented x3 Extrem General: Yes normal to inspection Psych Appearance: grossly normal Mental Status: mental status grossly normal Speech and movement: Normal speech and movement present Office Procedures EKG Details: Today, read by me, sinus bradycardia, right bundle branch block, no significant change from prior EKG, rate 59, QTC 449 milliseconds [id number], Complete Assessment & Plan Assessment & Plan (1) CAD (coronary artery disease): Code(s): I25.10 - Atherosclerotic heart disease of [place] coronary artery without angina pectoris Category: Medical Plan: History of CAD with three-vessel coronary artery bypass grafting 04/2020. Last echo 08/21/2022 shows EF 65-70%, basal inferior wall motion abnormality. EKG today sinus bradycardia, right bundle branch block, rate 59. No anginal symptoms. Continue aspirin indefinitely. Continue atorvastatin with ideal LDL goal less than 70. Continue metoprolol, metoprolol and lisinopril for good blood pressure control. Continue activity as tolerated. Cardiology follow-up 1 year, sooner if needed. (2) S/P CABG x 3: Comment: GUIDRY to LAD, left radial graft to the diagonal branch of the LAD, right GSV to the PDA, 05/02/2020 Code(s): Z95.1 - Presence of aortocoronary bypass graft Category: Surgical Plan: As above (3) S/P AVR: Comment: 25 mm pericardial bioprosthesis 05/02/2020 Code(s): Z95.2 - Presence of prosthetic heart valve Category: Surgical Plan: Bioprosthetic AVR functioning normally on echocardiogram 08/21/2022. Endocarditis prophylaxis prior to dental work. No murmur noted on exam. (4) Right bundle branch block: Code(s): I45.10 - Unspecified right bundle-branch block Category: Medical Plan: Present on EKG, not new. (5) Hypertension: Code(s): I10 - Essential (primary) hypertension Category: Medical Plan: Blood pressure goal less than 130/80, near goal today. No med changes made (6) Hyperlipidemia: Code(s): E78.5 - Hyperlipidemia, unspecified Category: Medical Plan: [place] LDL goal less than 70. Labs done 07/30/2023 showed LDL 61. He tell me that labs have been done since then by his PCP. Will request them. Continue high-dose atorvastatin Plan Time spent on chart review, documentation, interview and assessment Coding Level of Care Code Est Pt Level 4 (31640) Complex EM visit Add On G2211 Diagnoses CAD (coronary artery disease) I25.10 S/P CABG x 3 Z95.1 S/P AVR Z95.2 Right bundle branch block I45.10 Hypertension I10 Hyperlipidemia E78.5 CPT Codes EKG - CPT: 88257-[id number], Complete ([id number]) Time Spent (min) 34
== END 2025-02-23 14:48 | disposition home or self-care (01) ==
LOC: HO.HCS 13:57
PROVIDERS: PCP Nurse Practitioner Family; Visit Provider Nurse Practitioner Family
DX: I25.10 Atherosclerotic heart disease of native coronary artery without angina pectoris (principal); Z95.1 Presence of aortocoronary bypass graft; Z95.2 Presence of prosthetic heart valve; I45.10 Unspecified right bundle-branch block; I10 Essential (primary) hypertension; E78.5 Hyperlipidemia, unspecified
CPT/HCPCS: 93010; 99214; G2211

== ENCOUNTER → 2025-02-23 13:56 | Outpatient (BNVA) | payer MEDICARE, SELFPAY | PROVIDERS: PCP Nurse Practitioner Family; Visit Provider Nurse Practitioner Family | DX: I45.10 Unspecified right bundle-branch block (principal); I25.10 Atherosclerotic heart disease of native coronary artery without angina pectoris; I10 Essential (primary) hypertension; I35.0 Nonrheumatic aortic (valve) stenosis; E78.5 Hyperlipidemia, unspecified; Z95.1 Presence of aortocoronary bypass graft; Z95.2 Presence of prosthetic heart valve | CPT/HCPCS: 93005; 99212 ==